=== PATIENT | female | born 1950 | race Caucasian/White ===

== ENCOUNTER 2019-12-25 08:08 | Emergency (ER) | payer MEDICARE, SELFPAY ==
--- NOTE | ~2019-12-25 | CT_ITS ---
EXAMINATION: CT pelvis wo con DATE: 12/25/2019 09:21 INDICATION: Fall with right hip pain TECHNIQUE: High resolution computed tomography (CT) of the pelvis was performed without intravenous c ontrast. Additional sagittal and coronal reconstructions were performed. Automated exposure control a nd iterative reconstruction technique were employed. The dose-length product was 367.36 mGy-cm. COMPARISON: None FINDINGS: Bone alignment is normal. Diffuse osteopenia. No fracture or suspected avascular necrosis. Mild osteo arthritis at the bilateral hips and sacroiliac joints. Severe lower lumbar spondylosis. No hip joint effusions or other abnormal fluid collections. Relatively symmetric mild fatty muscular atrophy in th e bilateral gluteal, quadriceps and hamstring musculature. Numerous diverticula along the sigmoid and distal descending colon without adjacent from 3 change to suggest diverticulitis. Appendix is normal . Bladder is normal. The uterus is not identified and has likely been surgically resected. No patholo gically enlarged pelvic or inguinal lymphadenopathy. IMPRESSION: 1. Degenerative skeletal changes. No acute osseous abnormality. Reviewed, dictated and finalized at location A.
--- NOTE | ~2019-12-25 | CT_ITS ---
EXAMINATION: CT lumbar spine wo con DATE: 12/25/2019 09:20 INDICATION: Back pain. Fall. TECHNIQUE: Computed tomography (CT) of the lumbar spine was performed without intravenous contrast. A utomated exposure control and iterative reconstruction technique were employed. The dose-length produ ct was 723.23 mGy-cm. COMPARISON: None FINDINGS: There is mild right hydronephrosis with transition point at the ureteropelvic junction. Par tially visualized are cysts in left kidney. There is 11 degrees levoscoliosis of thoracolumbar spine. There is 9 degrees dextrocurvature of lumbar spine. There is 3 mm anterolisthesis of L4 on L5. There is severely decreased disc height at T12-L1 and L1-L2, moderately decreased disc height at L2-L3 and L3-L4, and severely decreased disc height at L4-L5 and L5-S1. The following disc levels are specific ally discussed: L1-L2: The disc is bulging. There is severe bilateral facet joint osteoarthritis. There is mild right and moderate left neural foraminal stenosis. There is mild central canal stenosis. L2-L3: The disc is bulging. There is severe bilateral facet joint osteoarthritis. There is mild bilat eral neural foraminal stenosis. There is mild central canal stenosis. L3-L4: The disc is bulging. There is severe bilateral facet joint osteoarthritis. There is mild bilat eral neural foraminal stenosis. There is mild central canal stenosis. L4-L5: The disc is bulging. There is severe bilateral facet joint osteoarthritis. There is moderate b ilateral neural foraminal stenosis. There is moderate central canal stenosis. L5-S1: The disc is bulging. There is severe bilateral facet joint osteoarthritis. There is mild bilat eral neural foraminal stenosis. There is mild central canal stenosis. IMPRESSION: 1. Severe lumbar spondylosis. 2. Scoliosis. 3. Mild right hydronephrosis with transition point at the ureteropelvic junction. Reviewed, dictated and finalized at location A. IMPRESSION: 1. Severe lumbar spondylosis. 2. Scoliosis. 3. Mild right hydronephrosis with transition point at the ureteropelvic junctio n.
[2019-12-25 08:07] VITALS: BP 162/89; PULSE 101; RESP 16; TEMP 36.7; O2SAT 96
--- NOTE | 2019-12-25 08:47 | ED.FALL ---
HPI - Fall General Chief Complaint: Fall Stated Complaint: R HIP PAIN Time Seen by Provider: 12/25/19 08:16 Source: patient and EMS Mode of arrival: EMS Limitations: no limitations History of Present Illness HPI Narrative: Patient is a 69-year-old female with a history of polymyositis who presents for evaluation of a fall. Patient states that on Sunday, approximately 4 days ago, patient was transferring to a scooter, and fell off the scooter to the ground. Patient states she landed on her right side. Patient was initially able to stand with some assistance, but over the past 4 days has developed worsening lower back pain and right-sided hip pain. Patient has a history of frequent falls, numerous fractures in the past. Patient denies head trauma or loss of consciousness. No neck pain or upper back pain. No shoulder or arm pain. No wrist pain. Patient denies any numbness, but states that her right leg feels as if it will give out each time she tries to stand up. She also reports radiating pain from her buttock into her thigh. No numbness in her right leg. No bruising. Related Data Home Medications Medication Instructions Recorded Confirmed alprazolam 12/25/19 amlodipine 12/25/19 12/25/19 azathioprine 12/25/19 baclofen mg 12/25/19 celecoxib mg 12/25/19 pantoprazole PO 12/25/19 prednisone 4 mg PO DAILY 12/25/19 prednisone 5 mg PO DAILY 12/25/19 tramadol mg 12/25/19 Allergies Allergy/AdvReac Type Severity Reaction Status Date / Time hydrocodone Allergy Unknown Hives Verified 12/25/19 08:19 cephalexin [From Keflex] Allergy Hives Verified 12/25/19 08:19 VICODIN Allergy Unknown Hives Uncoded 12/25/19 08:19 Review of Systems Review of Systems: Narrative: CONSTITUTIONAL: Denies fever CARDIOVASCULAR: Denies chest pain RESPIRATORY: Denies cough or dyspnea. GASTROINTESTINAL: Denies abdominal pain SKIN: Denies rash MUSCULOSKELETAL: Reports back pain and right-sided hip pain NEUROLOGIC: Denies headache PMFSH Past Medical History Medical History Carpal tunnel syndrome Headache Polymyositis Sleep apnea Surgical History Surgical History (Updated 12/25/19 @ 08:50 by Yolanda Herrera MD) H/O: hysterectomy Hx of cholecystectomy Social History Social History (Updated 12/25/19 @ 08:50 by Yolanda Herrera MD) Smoking status: Never smoker Alcohol intake: never Substance use: never Living arrangements: with family Gender identity (if verbalized by the patient): Female Exam Narrative: Exam Narrative: GENERAL: Awake, alert, conversant HEAD: Normocephalic, atraumatic. EYES: PERRLA and EOMI. ENT: Nares clear, no rhinorrhea or epistaxis. Mucous membranes moist. NECK: Supple. CHEST: No respiratory distress, breathing even and non labored HEART: Regular rate, sinus rhythm ABDOMEN:Non distended, non tender EXTREMITIES: Pelvis stable to anterior lateral compression. No significant pain with palpation. Normal range of motion. No edema. No limb length discrepancy. No pain with internal or external rotation of the right or left hip. DP pulses 2+. Reflexes 2+. SKIN: Warm, dry, no rash. NEURO:No focal deficits. Alert and oriented x3 Course Vital Signs Vital signs: Vital Signs Temperature 36.7 C 12/25/19 08:07 Pulse Rate 101 H 12/25/19 08:07 Respiratory Rate 16 12/25/19 08:07 Blood Pressure 162/89 H 12/25/19 08:07 Pulse Oximetry 96 12/25/19 08:07 Temperature 36.7 C 12/25/19 08:07 Pulse Rate 99 12/25/19 09:20 Respiratory Rate 16 12/25/19 09:20 Blood Pressure 149/73 H 12/25/19 09:20 Pulse Oximetry 98 12/25/19 09:20 MDM - Fall MDM Narrative Medical decision making narrative: Patient is a 69-year-old female that presented for evaluation of hip pain following a fall. Patient reports some radiating pain that sounds a bit like neuropathy given the burning, shooting nature of the pain into the thigh an
[2019-12-25] MEDS: oxyCODONE/ACETAMINOPHEN 5-325 MG TABLET 1 TABLET PO (08:59)
[2019-12-25 09:20] VITALS: BP 149/73; PULSE 99; RESP 16; O2SAT 98
[2019-12-25 11:00] VITALS: BP 137/78; PULSE 105; RESP 16; O2SAT 95
== END 2019-12-25 13:15 | disposition home or self-care (01) ==
PROVIDERS: Emergency Provider Emergency Medicine; PCP Internal Medicine
DX: M54.40 Lumbago with sciatica, unspecified side (principal); G47.30 Sleep apnea, unspecified; M33.20 Polymyositis, organ involvement unspecified; M47.816 Spondylosis without myelopathy or radiculopathy, lumbar region; N13.30 Unspecified hydronephrosis
CPT/HCPCS: 72131; 72192; 99284; A9270

== ENCOUNTER 2022-05-01 20:13 | Inpatient (IN) | payer MEDICARE, SELFPAY ==
--- NOTE | ~2022-05-01 | CT_ITS ---
EXAMINATION: CTA abdomen pelvis DATE: 05/01/2022 21:52 INDICATION: GI bleed TECHNIQUE: Computed tomographic angiography (CTA) of the abdomen and pelvis was performed with 100 mL Omnipaque-350 intravenous contrast. Maximum intensity projection 3D-reconstructions of the aorta and other arteries were constructed by the technologist on a separate workstation. The dose-length produ ct (DLP) was 582.43 mGy-cm. Automated exposure control and iterative reconstruction technique were em ployed. COMPARISON: None. FINDINGS: Minimal dependent atelectasis is present in the lung bases. The heart size is normal. There is no aneurysm or dissection of the abdominal aorta and the celiac axis, superior mesenteric artery, and inferior mesenteric artery are normal at their origins. There are two right and one left renal a rteries. The gallbladder is surgically absent. There is mild enlargement of the common bile duct and central intrahepatic ducts which is likely due to post cholecystectomy state. The liver, spleen and a drenal glands are normal. There are 12 mm cystic lesions in the head and tail of the pancreas. There is a 15 mm cystic lesion in the head of the pancreas. Cysts of the kidneys measure up to 7.4 cm on th e left. The appendix is normal. No pathologically enlarged abdominal or pelvic lymph nodes are identi fied. There is no free intraperitoneal gas or evidence of bowel obstruction. There are multiple colon ic diverticula. There is hyperattenuating contrast attenuation in the sigmoid colon. There is severe lumbar spondylosis. IMPRESSION: 1. Active contrast extravasation of the sigmoid colon likely related to bleeding diverticula. GI eval uation is recommended. 2. Multiple cystic lesions of the pancreas. The differential diagnosis includes pseudocyst, intraduct al papillary mucinous neoplasm (IPMN), mucinous cystic neoplasm (MCN), and the less common serous cys tadenoma and neuroendocrine tumor. Correlate for history of pancreatitis. Follow-up pancreas protocol CT or MRI in six months is recommended. Reviewed, dictated and finalized at location F. ING HOUSE KEEPER IMPRESSION: 1. Active contrast extravasation of the sigmoid colon likely related to bleedin g diverticula. GI evaluation is recommended. 2. Multiple cystic lesions of the pancreas. The differential diagnosis includes pseudocyst, intraductal papillary mucinous neoplasm (IPMN), mucinous cystic ne oplasm (MCN), and the less common serous cystadenoma and neuroendocrine tumor. Correlate for history of pancreatitis. Follow-up pancreas protocol CT or MRI in six months is recommended.
[2022-05-01 20:25] VITALS: BP 154/110; PULSE 122; RESP 18; TEMP 36.6; O2SAT 97
--- NOTE | 2022-05-01 20:47 | ED.GIBLEED ---
HPI - GI Bleed General Chief complaint: GI Bleed Stated complaint: gi bleed Time Seen by Provider: 05/01/22 20:31 History of Present Illness HPI Narrative: This is a 71-year-old female past medical history of polymyositis on prednisone and azathioprine, presenting the emergency department with GI bleed. Patient states she was in her normal state of health, this evening when a home advertising assistant manager, as assisted her up to the restroom when she noted blood on the seat. She then had a bowel movement that she said was primarily blood. She denies bleeding from any source, abdominal pain, fevers, chest pain or shortness of breath. She denies any prior history of abdominal bleed. She states over the past week she has taken approximately 800 mg of ibuprofen twice a day after a fall. She has no other complaints today. Related Data Home Medications Medication Instructions Recorded Confirmed alprazolam 0.25 mg tablet 2.5 mg PO QHS PRN Sleep 12/25/19 05/02/22 amlodipine 2.5 mg tablet 7.5 mg PO DAILY 12/25/19 05/02/22 azathioprine 50 mg tablet 50 mg PO TID 12/25/19 05/02/22 baclofen 10 mg tablet 10 mg PO BID 12/25/19 05/02/22 pantoprazole 40 mg tablet,delayed 40 mg PO DAILY 12/25/19 05/02/22 release prednisone 1 mg tablet 2 mg PO DAILY 12/25/19 05/02/22 prednisone 5 mg tablet 5 mg PO DAILY 12/25/19 05/02/22 tramadol 50 mg tablet 50 mg PO PRN PRN Pain 12/25/19 05/02/22 methenamine hippurate 1 gram tablet 1 g PO BID 05/02/22 05/02/22 Allergies Allergy/AdvReac Type Severity Reaction Status Date / Time hydrocodone Allergy Unknown Hives Verified 05/01/22 20:33 cephalexin [From Keflex] Allergy Hives Verified 05/01/22 20:33 VICODIN Allergy Unknown Hives Uncoded 05/01/22 20:33 Review of Systems Review of Systems: CONSTITUTIONAL: Denies fever, chills, or sweats. EYES: Denies visual changes, redness, or discharge. ENT: Denies rhinorrhea, congestion, sore throat, or otalgia. CARDIOVASCULAR: Denies chest pain, palpitations, or edema. RESPIRATORY: Denies cough or dyspnea. GASTROINTESTINAL: Bright red blood per rectum denies abdominal pain, nausea, vomiting, or diarrhea. GENITOURINARY: Denies dysuria or hematuria. SKIN: Denies rash or itching. MUSCULOSKELETAL: Denies back pain, joint pain, or myalgia. NEUROLOGIC: Denies headache, numbness, dizziness, or weakness. PSYCHIATRIC: Denies anxiety or depression. [facility] Past Medical History Medical History (Updated 05/02/22 @ 05:13 by Joon Arteaga MD) Essential hypertension GERD (gastroesophageal reflux disease) Headache Polymyositis Sleep apnea Surgical History Surgical History (Updated 05/02/22 @ 04:31 by Jessica Laura DO) History of bilateral carpal tunnel release (~1999) History of laparoscopic cholecystectomy History of nasal septoplasty (2000) With turbinate reduction History of tonsillectomy (2000) Status post uvulopalatopharyngoplasty (2000) Family History Family History Father Congestive heart failure Social History Social History Smoking status: Never smoker Alcohol intake: former Drinks per week: 1 Substance use: never Lack of Transportation: No Lack of Food: Never True Current Housing: I Have Housing Concerned About Future Housing: No Difficulty Paying Gas/Electric Bills: No Difficulty Paying for Meds: No Currently Unemployed: No Education: Master's Degree or Higher Difficulty w/ Childcare or Family Care: No Gender identity (if verbalized by the patient): Female Spiritual care concerns: No Exam Narrative: GENERAL: Well-developed, well-nourished, and in no acute distress. HEAD: Normocephalic, atraumatic. EYES: PERRLA and EOMI. ENT: Nares clear, no rhinorrhea or epistaxis. Mucous membranes moist. Oropharynx without tonsillar hypertrophy exudate or other lesions. No noted conjunctival pallor NECK: Supple. No adenopathy or m
[2022-05-01] MEDS: SODIUM CHLORIDE 0.9% IV 1,000 ML 999 ML IV CONT (21:10)
[2022-05-01 21:12] LABS: Basophils Absolute Auto 0.1 K/mm3 (0.0-0.1); Basophils Percent Auto 0.8 % (0.2-1.2); Eosinophils Absolute Auto 0.3 K/mm3 (0-0.3); Eosinophils Percent Auto 2.3 % (0-4.4); Hematocrit 39.1 % (37.0-47.0); Hemoglobin 12.9 g/dL (12.0-15.0); Immature Granulocyte Absolute 0.04 K/mm3 (0.00-0.031); Immature Granulocyte Percent A 0.4 % (0-0.5); Lymphocytes Absolute Auto 2.72 K/mm3 (0.9-3.2); Lymphocytes Percent Auto 23.9 % (18.3-44.2); Mean Corpuscular Hemoglobin 31.2 pg (26-34); Mean Corpuscular Volume 94.7 fl (80-100); Mean Platelet Volume 9.6 fl (7.4-10.4); Monocytes Absolute Auto 1.1 K/mm3 (0.1-0.6); Monocytes Percent Auto 9.7 % (2.6-8.5); Neutrophils Absolute Auto 7.2 K/mm3 (1.3-6.7); Neutrophils Percent Auto 62.9 % (45.5-73.1); Platelet Count Result 406 k/mm3 (150-375); Red Blood Count 4.13 M/mm3 (4.2-5.4); Red Cell Distribution Width 13.5 % (11.5-14.5); White Blood Count 11.4 K/mm3 (4.5-10.0)
[2022-05-01 21:22] LABS: Alanine Aminotransferase 18 U/L (6-35); Alkaline Phosphatase 70 U/L (38-126); Anion Gap 12 mmol/L (8-16); Aspartate Amino Transferase 23 U/L (14-36); Bilirubin,Total 0.4 mg/dL (0.2-1.3); Blood Urea Nitrogen 22 mg/dL (7-17); Calcium 8.9 mg/dL (8.4-10.2); Carbon Dioxide 26 mmol/L (22-30); Chloride 103 mmol/L (98-107); Estimated CRCL calculation 92 ml/min; Estimated Glomerular Filt Rate > 60; Glucose 198 mg/dL (65-110); Sodium 141 mmol/L (137-145)
[2022-05-01 21:25] LABS: INR 1.1; Prothrombin Time 13.5 Seconds (11.1-14.7)
[2022-05-01 21:26] LABS: Partial Thromboplastin Time 35.7 SECONDS (22.3-36.8)
[2022-05-01] MEDS: PANTOPRAZOLE SODIUM IV 40 MG VIAL 80 MG IV PUSH (21:56)
[2022-05-01 22:22] VITALS: PULSE 108; RESP 12
[2022-05-01 22:30] VITALS: PULSE 103; RESP 18; O2SAT 97
[2022-05-01 22:45] VITALS: BP 138/76; PULSE 102; RESP 12; O2SAT 96
[2022-05-01 23:51] VITALS: BP 117/76; PULSE 95; RESP 18; O2SAT 99
[2022-05-02] VITALS (17 sets, daily range): BP systolic 80–140; BP diastolic 39–82; PULSE 86–111; RESP 12–23; TEMP 36.1–37.2; O2SAT 95–100; BMI 30.2; BMI 30.5
[2022-05-02 00:31] LABS: SARS-CoV-2 RNA PCR Negative
--- NOTE | 2022-05-02 00:35 | ADMGEN ---
This patient, Janice Walker, was admitted to IMU Room 201-01 at 0030. Patient/family oriented to hospital policies and general routines including ID bracelet, bed and alarms, visiting hours, pain management, procedures, bathroom and other care routines, personal items, smoking policy, room service/diet, and visiting hours. Information on how to activate the Rapid Response Team has been discussed. Patient/Family are encouraged to report perceived risks to care and to ask questions if they do not understand what they are told or what they should do.
[2022-05-02] MEDS: SODIUM CHLORIDE 0.9% IV 1,000 ML 125 ML IV CONT ×2 (03:00→20:33)
--- NOTE | 2022-05-02 04:22 | PM.IMHP ---
H&P: HPI History of Present Illness Date/Time: 05/02/22 04:22 Chief Complaint: Bright red blood from rectum Narrative: 71-year-old female with a past medical history of polymyositis essential hypertension, GERD and diverticulosis who presented to the ER from home via EMS due to bright red blood per rectum. Patient was asymptomatic but when her mobile home set up person went to help her to go to the bathroom when she shifted it was noted she had a large amount of bright red blood where she had been sitting. She had another large bowel movement in the ER that was half blood and half stool. She is not having any abdominal pain. On arrival to the ER the patient's hemoglobin was 12.9 with no prior values available for comparison. Her repeat hemoglobin at the time of my evaluation was down to 9.1. The patient has had 4 large mostly bloody bowel movements since admission to the IMU. She remains tachycardic. She denies any abdominal pain except for immediately proceeding a bowel movement when her stomach cramps. She is not on any blood thinners. She has been taking ibuprofen approximately 8 tablets a day for the last 3 or 4 days since her fell on her bruising her ribs. She denies any nausea or vomiting. She denies any chest pain or shortness of breath. She has a chronic murmur that is been present for several years. She denies any history of lower extremity swelling orthopnea or paroxysmal nocturnal dyspnea. She denies any dyspnea on exertion. She denies any dysuria, hematuria or changes in urinary frequency. She does have history of frequent UTIs but has not had 1 in the last year. She reports that she has chronic buttock pain due to cramping from her polymyositis. Have baseline for the last year so patient can only transfer with [facility]. She undergoes physical therapy 3 days a week and occupational therapy twice a week. Her has dementia and they have home care assistance daily. Review of Systems Review of Systems: 12 systems were reviewed with pertinent positives and negatives per HPI. Except as documented in the HPI, all other systems were reviewed and are negative. [facility] Past Medical History Medical History (Updated 05/02/22 @ 06:03 by Jessica Laura DO) Diet-controlled type 2 diabetes mellitus Essential hypertension GERD (gastroesophageal reflux disease) Headache Polymyositis Sleep apnea Resolved after uvulopalatoplasty/tonsillectomy, septoplasty Surgical History Surgical History (Updated 05/02/22 @ 04:31 by Jessica Laura DO) History of bilateral carpal tunnel release (~1999) History of laparoscopic cholecystectomy History of nasal septoplasty (2000) With turbinate reduction History of tonsillectomy (2000) Status post uvulopalatopharyngoplasty (2000) Family History Family History (Updated 05/02/22 @ 05:51 by Jessica Laura DO) Father Congestive heart failure Heart disease, Onset Age: 65 Dementia Mother Diabetes mellitus Her mother still alive at age 94. Social History Social History (Updated 05/02/22 @ 05:56 by Jessica Laura DO) Social History: Patient and lives at home with her of 50 years. They have 2 children and 7 grandchildren. 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 Code status: Full code Emergency contact: Esther Salter (daughter) Smoking status: Never smoker Alcohol intake: former Drinks per week: 1 Substance use: never Lack of Transportation: No Lack of Food: Never True Current Housing: I Have Housing Concerned About Future Housing: No Difficulty Paying Gas/Electric Bills: No Difficulty Paying for Meds: No Currently Unemployed: No Education: Master's Degree or Higher Difficulty w/ Childcare or Family Care: No Gender identity (if verbalized by the patient): Female [place]
[2022-05-02 05:08] LABS: Basophils Absolute Auto 0.1 K/mm3 (0.0-0.1); Basophils Percent Auto 0.7 % (0.2-1.2); Eosinophils Absolute Auto 0.2 K/mm3 (0-0.3); Eosinophils Percent Auto 1.6 % (0-4.4); Hematocrit 27.8 % (37.0-47.0); Hemoglobin 9.1 g/dL (12.0-15.0); Immature Granulocyte Absolute 0.04 K/mm3 (0.00-0.031); Immature Granulocyte Percent A 0.4 % (0-0.5); Lymphocytes Percent Auto 23.9 % (18.3-44.2); Mean Corpuscular HGB Conc 32.7 g/dl (32-36); Mean Corpuscular Volume 94.6 fl (80-100); Mean Platelet Volume 9.8 fl (7.4-10.4); Monocytes Absolute Auto 0.9 K/mm3 (0.1-0.6); Monocytes Percent Auto 9.7 % (2.6-8.5); Neutrophils Absolute Auto 6.1 K/mm3 (1.3-6.7); Neutrophils Percent Auto 63.7 % (45.5-73.1); Platelet Count Result 336 k/mm3 (150-375); Red Blood Count 2.94 M/mm3 (4.2-5.4); Red Cell Distribution Width 13.5 % (11.5-14.5); White Blood Count 9.6 K/mm3 (4.5-10.0)
[2022-05-02 05:14] LABS: Anion Gap 7 mmol/L (8-16); Blood Urea Nitrogen 21 mg/dL (7-17); Carbon Dioxide 24 mmol/L (22-30); Chloride 110 mmol/L (98-107); Estimated CRCL calculation 123 ml/min; Estimated Glomerular Filt Rate > 60; Glucose 139 mg/dL (65-110); Potassium 3.9 mmol/L (3.4-5.0); Sodium 141 mmol/L (137-145)
[2022-05-02] MEDS: polyethylene glycoL 3350 238 GM BOTTLE PO (06:16)
[2022-05-02] MEDS: traMADol HCL (*CRX) 50 MG TABLET PO ×2 (06:36→22:57)
[2022-05-02] MEDS: PANTOPRAZOLE 40 MG TABLET PO (08:59)
[2022-05-02] MEDS: azaTHIOprine 50 MG TABLET PO ×2 (08:59→17:54)
[2022-05-02] MEDS: BACLOFEN 10 MG TABLET PO ×2 (08:59→17:54)
[2022-05-02] MEDS: predniSONE 5 MG TABLET PO (08:59)
[2022-05-02] MEDS: predniSONE 1 MG TABLET 2 MG PO (08:59)
--- NOTE | 2022-05-02 09:10 | PM.IMPN ---
Progress Note: A&P Assessment and Plan (1) Diverticular hemorrhage: Code(s): K57.31 - Diverticulosis of large intestine without perforation or abscess with bleeding Status: Acute Assessment and Plan: Colonoscopy earlier today, showed diverticular bleed general surgery consulted in case patient needs embolization CLD for now (2) GERD (gastroesophageal reflux disease): Qualifiers: Esophagitis presence: esophagitis presence not specified Qualified Code(s): K21.9 - Gastro-esophageal reflux disease without esophagitis Code(s): K21.9 - Gastro-esophageal reflux disease without esophagitis Status: Acute Assessment and Plan: IV PPI (3) Essential hypertension: Code(s): I10 - Essential (primary) hypertension Status: Acute Assessment and Plan: hold BP meds for now, monitor (4) Hyperglycemia: Code(s): R73.9 - Hyperglycemia, unspecified Status: Acute Assessment and Plan: check a1c, accuchecks, monitor (5) Polymyositis: Code(s): M33.20 - Polymyositis, organ involvement unspecified Status: Acute Assessment and Plan: continue chronic steroids, stable Plan DVT prophylaxis with SCDs GI prophylaxis with PPI Code status full code Subjective Date/time seen: 05/02/22 09:10 Interval history: No overnight events noted. No chest pain or shortness of breath. No nausea, vomiting or diarrhea. No fevers or chills. No more diarrhea, last BM this morning before colonoscopy. Review of Systems Review of Systems: 12 point review of systems was assessed and was negative except as noted in the HPI Exam Narrative: General: No acute distress, alert and oriented per baseline HEENT: Atraumatic, normocephalic, mucous membranes moist CV: Regular rate and rhythm, S1, S2 Lungs: Clear to auscultation bilaterally, no rales or crackles noted, no wheezes, good air entry Abdomen: Soft, nontender, nondistended Extremities: Normal to inspection Skin: No rashes noted, no lesions or wounds seen Psych: Euthymic, normal affect Objective Data Vital Signs Vital Signs: Vital Signs - 24 hr 05/01/22 20:25 05/01/22 22:22 05/01/22 22:30 Temperature 97.9 F Pulse Rate 122 H 108 H 103 H Respiratory Rate 18 12 18 Blood Pressure 154/110 H Pulse Oximetry 97 97 Oxygen Delivery Room Air 05/01/22 22:45 05/01/22 23:51 05/02/22 00:31 Temperature 97.9 F Pulse Rate 102 H 95 95 Respiratory Rate 12 18 20 Blood Pressure 138/76 117/76 126/72 Pulse Oximetry 96 99 98 Oxygen Delivery 05/02/22 02:00 05/02/22 04:00 05/02/22 04:35 Temperature 98.0 F Pulse Rate 95 106 H 101 H Respiratory Rate 18 Blood Pressure 137/74 Pulse Oximetry 97 Oxygen Delivery 05/02/22 06:00 05/02/22 07:51 05/02/22 08:53 Temperature 98.5 F 98.9 F Pulse Rate 105 H 111 H 104 H Respiratory Rate 12 16 Blood Pressure 135/72 137/73 Pulse Oximetry 98 98 Oxygen Delivery Intake/Output Intake/Output: Intake & Output 04/29/22 04/30/22 05/01/22 05/02/22 23:59 23:59 23:59 23:59 Intake Total 1000 0 Balance 1000 0 Meds/Results Medications: Active Medications Generic Name Dose Route Start Last Admin Trade Name Freq PRN Reason Stop Dose Admin Acetaminophen 500 mg 05/02/22 04:10 Acetaminophen 500 Mg Tablet PO Q6H PRN fever or pain Alprazolam 0.25 mg 05/02/22 06:44 Alprazolam (*Crx) 0.25 Mg Tablet BY MOUTH TID PRN Anxiety Azathioprine 50 mg 05/02/22 09:00 05/02/22 08:59 Azathioprine 50 Mg Tablet PO 50 mg TID SIA Administration Baclofen 10 mg 05/02/22 09:00 05/02/22 08:59 Baclofen 10 Mg Tablet PO 10 mg BID SIA Administration Sodium Chloride 1,000 mls @ 125 mls/hr 05/01/22 23:40 05/02/22 03:00 Normal Saline Iv IV CONT 125 mls/hr .Q8H SIA Administration Sodium Chloride 250 mls @ 30 mls/hr 05/02/22 05:33 Normal Saline Iv IV CONT 05/02/22 1
[2022-05-02] MEDS: LACTATED RINGERS 1,000 ML 150 ML IV CONT (10:17)
--- NOTE | 2022-05-02 10:31 | WPDANESEPPF ---
Anes - Initial Pre Proc Eval Procedure: Operation Date: 05/02/22 12:30 Proposed Procedures p Colonoscopy - Allen Humphrey MD Date/Time: 05/02/22 10:31 Surgeon: Jessica Laura DO Pre Op Diagnosis: Diverticular bleed Patient Data Age: 71 Gender: F Height: 1.55 m Weight: 74 kg Last Vital Signs Temp 97.7 F 05/02/22 10:15 Pulse 97 05/02/22 10:15 Resp 18 05/02/22 10:15 BP 130/77 05/02/22 10:15 Pulse Ox 100 05/02/22 10:15 O2 Del Method Room Air 05/02/22 10:15 Allergies Allergy/AdvReac Type Severity Reaction Status Date / Time hydrocodone Allergy Unknown Hives Verified 05/02/22 10:12 cephalexin [From Keflex] Allergy Hives Verified 05/02/22 10:12 VICODIN Allergy Unknown Hives Uncoded 05/02/22 10:12 Home Medications Medication Instructions Recorded Confirmed Type acetaminophen 500 mg capsule 500 mg PO Q6H PRN fever or pain 12/25/19 05/02/22 Rx #30 caps alprazolam 0.25 mg tablet 2.5 mg PO QHS PRN Sleep 12/25/19 05/02/22 History amlodipine 2.5 mg tablet 7.5 mg PO DAILY 12/25/19 05/02/22 History azathioprine 50 mg tablet 50 mg PO TID 12/25/19 05/02/22 History baclofen 10 mg tablet 10 mg PO BID 12/25/19 05/02/22 History ibuprofen 400 mg tablet 400 mg PO TID PRN fever or pain 10 12/25/19 05/02/22 Rx days #30 tabs pantoprazole 40 mg tablet,delayed 40 mg PO DAILY 12/25/19 05/02/22 History release prednisone 1 mg tablet 2 mg PO DAILY 12/25/19 05/02/22 History prednisone 5 mg tablet 5 mg PO DAILY 12/25/19 05/02/22 History tramadol 50 mg tablet 50 mg PO PRN PRN Pain 12/25/19 05/02/22 History methenamine hippurate 1 gram tablet 1 g PO BID 05/02/22 05/02/22 History Laboratory Tests 05/01/22 05/01/22 05/01/22 21:06 21:06 21:06 WBC 11.4 K/mm3 H K/mm3 (4.5-10.0) RBC 4.13 M/mm3 L M/mm3 (4.2-5.4) Hgb 12.9 g/dL g/dL (12.0-15.0) Hct 39.1 % % (37.0-47.0) MCV 94.7 fl fl (80-100) MCH 31.2 pg pg (26-34) MCHC 33.0 g/dl g/dl (32-36) RDW 13.5 % % (11.5-14.5) Plt Count 406 k/mm3 H k/mm3 (150-375) MPV 9.6 fl fl (7.4-10.4) Immature Gran % (Auto) 0.4 % % (0-0.5) Neut % (Auto) 62.9 % % (45.5-73.1) Lymph % (Auto) 23.9 % % (18.3-44.2) [place] % (Auto) 9.7 % H % (2.6-8.5) Eos % (Auto) 2.3 % % (0-4.4) Baso % (Auto) 0.8 % % (0.2-1.2) Lymph # (Auto) 2.72 K/mm3 K/mm3 (0.9-3.2) [place] # (Auto) 1.1 K/mm3 H K/mm3 (0.1-0.6) Eos # (Auto) 0.3 K/mm3 K/mm3 (0-0.3) Baso # (Auto) 0.1 K/mm3 K/mm3 (0.0-0.1) Abs Immat Gran (auto) 0.04 K/mm3 H K/mm3 (0.00-0.031) Absolute Neuts (auto) 7.2 K/mm3 H K/mm3 (1.3-6.7) Absolute Nucleated RBC 0.0 K/mm3 K/mm3 (0.0-0.012) Nucleated RBC % 0.0 % % (0.0-0.2) PT 13.5 Seconds Seconds (11.1-14.7) INR 1.1 APTT 35.7 SECONDS SECONDS (22.3-36.8) Sodium 141 mmol/L mmol/L (137-145) Potassium 4.0 mmol/L mmol/L (3.4-5.0) Chloride 103 mmol/L mmol/L (98-107) Carbon Dioxide 26 mmol/L mmol/L (22-30) Anion Gap 12 mmol/L mmol/L (8-16) BUN 22 mg/dL H mg/dL (7-17) Creatinine 0.40 mg/dL L mg/dL (0.7-1.0) Estim Creat Clear Calc 92 ml/min ml/min Estimated GFR > 60 (59 - ) Glucose 198 mg/dL H mg/dL (65-110) Calcium 8.9 mg/dL mg/dL (8.4-10.2) Total Bilirubin 0.4 mg/dL mg/dL (0.2-1.3) AST 23 U/L U/L (14-36) ALT 18 U/L U/L (6-35) Alkaline Phosphatase 70 U/L U/L (38-126) Total Protein 7.0 g/dL g/dL (6.3-8.2) Albumin 4.0 g/dL g/dL (3.5-5.1) SARS-CoV-2 RNA (RT-PCR) Blood Type Antibody Screen Crossmatch 05/01/22 05/01/22 05/02/22
--- NOTE | 2022-05-02 10:47 | WPDGICN ---
Assessment and Plan Assessment and plan (1) Diverticular hemorrhage: Code(s): K57.31 - Diverticulosis of large intestine without perforation or abscess with bleeding Status: Acute Assessment and Plan: CTA scan ordered and consistent with active bleeding from sigmoid diverticula will proceed with urgent colonoscopy may need surgery or even interventional radiology based on findings (2) Acute blood loss anemia: Code(s): D62 - Acute posthemorrhagic anemia Status: Acute Assessment and Plan: monitor for more signs of bleeding and gtrend h/h she is getting blood transfusion now (3) Bright red blood per rectum: Code(s): K62.5 - Hemorrhage of anus and rectum Status: Acute Assessment and Plan: probably from diverticula bleeding (4) Polymyositis: Code(s): M33.20 - Polymyositis, organ involvement unspecified Status: Acute GI Consult Note Consult date/time: 05/02/22 10:47 Reason for consult: rectal bleeding, acute blood loss anemia HPI: Janice Walker is a 71 year old female with past medical history of polymyositis on steroid and imuran, hypertension, GERD and diverticulosis who presented to the ER from home via EMS due to bright red blood per rectum that started last night without any warning, she had since several episodes of bright red blood per rectum, denies abdominal pain or fever, no history of GIB, denies using blood thinner. On arrival to the ER the patient's hemoglobin was 12.9 since dropped to 9.1. and still had more rectal bleeding, also was tachycardic and now getting blood transfusion. Last colonoscopy per patient ~ 2013. She completed bowel prep early this morning. Review of Systems Review of Systems: CONSTITUTIONAL: Denies fever, chills, or sweats. EYES: Denies visual changes, redness, or discharge. ENT: Denies rhinorrhea, congestion, sore throat, or otalgia. CARDIOVASCULAR: Denies chest pain, palpitations, or edema. RESPIRATORY: Denies cough or dyspnea. GASTROINTESTINAL: Bright red blood per rectum denies abdominal pain, nausea, vomiting, or diarrhea. GENITOURINARY: Denies dysuria or hematuria. SKIN: Denies rash or itching. MUSCULOSKELETAL: h/o myositis. NEUROLOGIC: Denies headache, numbness, dizziness, or weakness. PSYCHIATRIC: Denies anxiety or depression. [facility] Past Medical History Medical History (Updated 05/02/22 @ 12:40 by Allen Humphrey MD) Acute blood loss anemia Diet-controlled type 2 diabetes mellitus Essential hypertension GERD (gastroesophageal reflux disease) Headache Polymyositis Sleep apnea Resolved after uvulopalatoplasty/tonsillectomy, septoplasty Surgical History Surgical History (Updated 05/02/22 @ 04:31 by Jessica Laura DO) History of bilateral carpal tunnel release (~1999) History of laparoscopic cholecystectomy History of nasal septoplasty (2000) With turbinate reduction History of tonsillectomy (2000) Status post uvulopalatopharyngoplasty (2000) Family History Family History (Updated 05/02/22 @ 05:51 by Jessica Laura DO) Father Congestive heart failure Heart disease, Onset Age: 65 Dementia Mother Diabetes mellitus Her mother still alive at age 94. Social History Social History (Updated 05/02/22 @ 05:56 by Jessica Laura DO) Social History: Patient and lives at home with her of 50 years. They have 2 children and 7 grandchildren. 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 Code status: Full code Emergency contact: Esther Salter (daughter) Smoking status: Never smoker Alcohol intake: former Drinks per week: 1 Substance use: never Lack of Transportation: No Lack of Food: Never True Current Housing: I Have Housing Concerned About Future Housing: No Difficulty Paying Gas/Electric Bills: No Difficul
[2022-05-02 13:08] LABS: Hematocrit 31.5 % (37.0-47.0); Hemoglobin 10.2 g/dL (12.0-15.0); Mean Corpuscular HGB Conc 32.4 g/dl (32-36); Mean Corpuscular Hemoglobin 30.9 pg (26-34); Mean Corpuscular Volume 95.5 fl (80-100); Mean Platelet Volume 9.5 fl (7.4-10.4); Platelet Count Result 308 k/mm3 (150-375); Red Cell Distribution Width 14.1 % (11.5-14.5); White Blood Count 13.2 K/mm3 (4.5-10.0)
--- NOTE | 2022-05-02 14:28 | PM.CNGS ---
Assessment and Plan Assessment and plan (1) Acute blood loss anemia: Code(s): D62 - Acute posthemorrhagic anemia Status: Acute Assessment and Plan: s/p transfusion with appropriate response, no active bleed on colonoscopy, cont serial labs/exams (2) Diverticular hemorrhage: Code(s): K57.31 - Diverticulosis of large intestine without perforation or abscess with bleeding Status: Acute Assessment and Plan: likely source of bleed, cont serial exams, labs, if cont bleed will need intervention c either IR coil vs surgical resection History of Present Illness Consult details Consult date: 05/02/22 Reason for consult: other (lower GI bleed) Requesting physician: Allen Humphrey MD Narrative: Pt is a 71 y/o F presenting to hospital c BRBPR. Pt reports bleeding started acutely last night. Pt reports some associated weakness, dizziness. Pt denies any previous h/o GIB. Pt has h/o polymyositis and is on chronic steroid therapy. All history obtained per chart as pt is still in recovery from colonoscopy today. Review of Systems Review of Systems: ROS unobtainable: Yes unobtainable due to mental status and other (still waking up from anesthesia) PMFSH Past Medical History Medical History Acute blood loss anemia Diet-controlled type 2 diabetes mellitus Essential hypertension GERD (gastroesophageal reflux disease) Headache Polymyositis Sleep apnea Resolved after uvulopalatoplasty/tonsillectomy, septoplasty Surgical History Surgical History History of bilateral carpal tunnel release (~1999) History of laparoscopic cholecystectomy History of nasal septoplasty (2000) With turbinate reduction History of tonsillectomy (2000) Status post uvulopalatopharyngoplasty (2000) Family History Family History Father Congestive heart failure Heart disease, Onset Age: 65 Dementia Mother Diabetes mellitus Her mother still alive at age 94. Social History Social History Social History: Patient and lives at home with her of 50 years. They have 2 children and 7 grandchildren. 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 Code status: Full code Emergency contact: Esther Salter (daughter) Smoking status: Never smoker Alcohol intake: former Drinks per week: 1 Substance use: never Lack of Transportation: No Lack of Food: Never True Current Housing: I Have Housing Concerned About Future Housing: No Difficulty Paying Gas/Electric Bills: No Difficulty Paying for Meds: No Currently Unemployed: No Education: Master's Degree or Higher Difficulty w/ Childcare or Family Care: No Gender identity (if verbalized by the patient): Female Spiritual care concerns: No Meds Home Medications and Allergies Home Medications Medication Instructions Recorded Confirmed Type acetaminophen 500 mg capsule 500 mg PO Q6H PRN fever or pain 12/25/19 05/02/22 Rx #30 caps alprazolam 0.25 mg tablet 2.5 mg PO QHS PRN Sleep 12/25/19 05/02/22 History amlodipine 2.5 mg tablet 7.5 mg PO DAILY 12/25/19 05/02/22 History azathioprine 50 mg tablet 50 mg PO TID 12/25/19 05/02/22 History baclofen 10 mg tablet 10 mg PO BID 12/25/19 05/02/22 History ibuprofen 400 mg tablet 400 mg PO TID PRN fever or pain 10 12/25/19 05/02/22 Rx days #30 tabs pantoprazole 40 mg tablet,delayed 40 mg PO DAILY 12/25/19 05/02/22 History release prednisone 1 mg tablet 2 mg PO DAILY 12/25/19 05/02/22 History prednisone 5 mg tablet 5 mg PO DAILY 12/25/19 05/02/22 History tramadol 50 mg tablet 50 mg PO PRN PRN Pain 12/25/19 05/02/22 History methe
--- NOTE | 2022-05-02 16:52 | PC.NURSE ---
This patient, Janice Walker, was transferred to [facility] on 05/02/22 at 1652. Personal belongings sent with patient. Report given to Dede CHILD. Appropriate documentation sent with patient.
[2022-05-02 22:19] LABS: Hematocrit 27.5 % (37.0-47.0); Hemoglobin 9.1 g/dL (12.0-15.0); Mean Corpuscular HGB Conc 33.1 g/dl (32-36); Mean Corpuscular Hemoglobin 30.8 pg (26-34); Mean Corpuscular Volume 93.2 fl (80-100); Mean Platelet Volume 9.6 fl (7.4-10.4); Platelet Count Result 270 k/mm3 (150-375); Red Blood Count 2.95 M/mm3 (4.2-5.4); Red Cell Distribution Width 14.4 % (11.5-14.5); White Blood Count 11.6 K/mm3 (4.5-10.0)
[2022-05-03] VITALS: BP 129/67; PULSE 100; RESP 18; TEMP 36; O2SAT 97
[2022-05-03 04:15] VITALS: BP 145/69; PULSE 91; RESP 20; TEMP 36.1; O2SAT 98
[2022-05-03 05:20] LABS: Basophils Absolute Auto 0.1 K/mm3 (0.0-0.1); Basophils Percent Auto 0.8 % (0.2-1.2); Eosinophils Absolute Auto 0.2 K/mm3 (0-0.3); Eosinophils Percent Auto 2.1 % (0-4.4); Hematocrit 25.5 % (37.0-47.0); Hemoglobin 8.3 g/dL (12.0-15.0); Immature Granulocyte Absolute 0.05 K/mm3 (0.00-0.031); Immature Granulocyte Percent A 0.6 % (0-0.5); Lymphocytes Absolute Auto 2.64 K/mm3 (0.9-3.2); Lymphocytes Percent Auto 30.4 % (18.3-44.2); Mean Corpuscular HGB Conc 32.5 g/dl (32-36); Mean Corpuscular Hemoglobin 31.2 pg (26-34); Mean Corpuscular Volume 95.9 fl (80-100); Mean Platelet Volume 9.7 fl (7.4-10.4); Monocytes Percent Auto 11.5 % (2.6-8.5); Neutrophils Absolute Auto 4.7 K/mm3 (1.3-6.7); Neutrophils Percent Auto 54.6 % (45.5-73.1); Platelet Count Result 254 k/mm3 (150-375); Red Blood Count 2.66 M/mm3 (4.2-5.4); Red Cell Distribution Width 14.7 % (11.5-14.5); White Blood Count 8.7 K/mm3 (4.5-10.0)
[2022-05-03 05:28] LABS: Alanine Aminotransferase 15 U/L (6-35); Albumin Level 2.6 g/dL (3.5-5.1); Alkaline Phosphatase 50 U/L (38-126); Anion Gap 3 mmol/L (8-16); Aspartate Amino Transferase 15 U/L (14-36); Bilirubin,Total 0.3 mg/dL (0.2-1.3); Blood Urea Nitrogen 8 mg/dL (7-17); Calcium 7.7 mg/dL (8.4-10.2); Carbon Dioxide 23 mmol/L (22-30); Chloride 110 mmol/L (98-107); Estimated CRCL calculation 125 ml/min; Estimated Glomerular Filt Rate > 60; Glucose 115 mg/dL (65-110); Potassium 2.8 mmol/L (3.4-5.0); Sodium 136 mmol/L (137-145)
[2022-05-03 06:13] LABS: Magnesium 1.8 mg/dL (1.6-2.3)
[2022-05-03] MEDS: POTASSIUM CHLORIDE 20 MEQ TABLET 40 MEQ PO ×2 (06:32→09:50)
[2022-05-03] MEDS: SODIUM CHLORIDE 0.9% IV 1,000 ML 125 ML IV CONT ×2 (06:34→15:41)
--- NOTE | 2022-05-03 08:40 | PM.IMPN ---
Progress Note: A&P Assessment and Plan (1) Diverticular hemorrhage: Code(s): K57.31 - Diverticulosis of large intestine without perforation or abscess with bleeding Status: Acute Assessment and Plan: hb on admission 12, trending down CTA with active contrast extravasation of the sigmoid colon likley related to bleeding diverticula. colonoscopy: multiple diverticula present in the descending colon and in the sigmoid colon. the diverticula prodcuced a stimata of bleeding but could not see ongoing bleeding, noted analia stool adn clots from recent bleeding, could not identify culprit divertiula. source of bleeding was left sdied diverticulosis. colon normal otherwise, no AVMs, no signs of bleeding from right lolon, no obvious polyp but prep suboptimal. general surgery consulted in case patient needs embolization. If continues to have BRBPR: need to trasnfer to tertiary hospital with IR embolisation capability. on clear liquid diet Will advance if no further bleed today (2) GERD (gastroesophageal reflux disease): Qualifiers: Esophagitis presence: esophagitis presence not specified Qualified Code(s): K21.9 - Gastro-esophageal reflux disease without esophagitis Code(s): K21.9 - Gastro-esophageal reflux disease without esophagitis Status: Acute Assessment and Plan: IV PPI (3) Essential hypertension: Code(s): I10 - Essential (primary) hypertension Status: Acute Assessment and Plan: hold BP meds for now, monitor (4) Hyperglycemia: Code(s): R73.9 - Hyperglycemia, unspecified Status: Acute Assessment and Plan: accuchecks, monitor (5) Polymyositis: Code(s): M33.20 - Polymyositis, organ involvement unspecified Status: Acute Assessment and Plan: continue chronic steroids, stable Plan Hypokalemia: replaced, recheck and monitor DVT prophylaxis with SCDs GI prophylaxis with PPI Code status full code will order PT OT to evaluate she is limited in her mobility at home prior to this Subjective Date/time seen: 05/03/22 08:40 Interval history: No overnight events noted. No chest pain or shortness of breath. No nausea, vomiting or diarrhea. No fevers or chills. no further bleeding noted. Review of Systems Review of Systems: All systems reviewed & are unremarkable except as noted in HPI and below Exam Narrative: General: No acute distress, alert and oriented per baseline HEENT: Atraumatic, normocephalic, mucous membranes moist CV: Regular rate and rhythm, S1, S2 Lungs: Clear to auscultation bilaterally, no rales or crackles noted, no wheezes, good air entry Abdomen: Soft, nontender, nondistended Extremities: Normal to inspection Skin: No rashes noted, no lesions or wounds seen Psych: Euthymic, normal affect Objective Data Vital Signs Vital Signs: Vital Signs - 24 hr 05/02/22 08:53 05/02/22 09:08 05/02/22 10:15 Temperature 98.9 F 97.3 F L 97.7 F Pulse Rate 104 H 102 H 97 Respiratory Rate 16 18 18 Blood Pressure 137/73 132/70 130/77 Pulse Oximetry 98 97 100 Oxygen Delivery Room Air 05/02/22 11:23 05/02/22 11:33 05/02/22 11:43 Temperature Pulse Rate 101 H 94 97 Respiratory Rate 23 H 21 H 21 H Blood Pressure 80/39 L 101/56 L 126/82 Pulse Oximetry 95 96 95 Oxygen Delivery Room Air Room Air Room Air 05/02/22 11:45 05/02/22 12:00 05/02/22 16:00 Temperature 98.3 F 98.5 F 98.5 F Pulse Rate 97 99 102 H Respiratory Rate 21 H 12 12 Blood Pressure 126/82 133/70 140/80 Pulse Oximetry 95 98 98 Oxygen Delivery 05/02/22 18:40 05/02/22 20:59 05/03/22 00:00 Temperature 97 F L 96.8 F L Pulse Rate 86 100 Respiratory Rate 18 18 Blood Pressure 129/63 129/67 Pulse Oximetry 98 97 Oxygen Delivery Room Air 05/02/22 20:00 05/03/22 04:15 Temperature 96.9 F L Pulse Rate 91 Respiratory Rate 20 Blood Pressure 145/69 H Pulse Oximetry 98 Oxygen Delivery Room Air Intake/Output
[2022-05-03 08:48] LABS: Glucose Point of Care 130 mg/dl (65-105)
--- NOTE | 2022-05-03 09:05 | PM.PNGS ---
Progress Note: A&P Assessment and Plan (1) Diverticular hemorrhage: Code(s): K57.31 - Diverticulosis of large intestine without perforation or abscess with bleeding Status: Acute Assessment and Plan: stable, cont serial exams, labs, ADAT, encourage OOB/IS Subjective Subjective Date/Time Seen: 05/03/22 09:05 feels ok just reports weakness, no further bleeding overnight Review of Systems Review of Systems: All systems reviewed & are unremarkable except as noted in HPI and below Exam Const: General: cooperative, comfortable and no acute distress Resp: Auscultation: clear to auscultation bilaterally Cardio: Rate: regular rate Rhythm: regular rhythm GI: Inspection: normal to inspection and non-distended GI Palp: No abdominal tenderness, Yes Soft to palpation, No Tenderness to palpation present (GI), No Guarding due to palpation present (GI) and No Rigid due to palpation Objective Data Vital Signs Vital Signs: Vital Signs - 24 hr 05/02/22 09:08 05/02/22 10:15 05/02/22 11:23 Temperature 36.3 C L 36.5 C Pulse Rate 102 H 97 101 H Respiratory Rate 18 18 23 H Blood Pressure 132/70 130/77 80/39 L Pulse Oximetry 97 100 95 Oxygen Delivery Room Air Room Air 05/02/22 11:33 05/02/22 11:43 05/02/22 11:45 Temperature 36.8 C Pulse Rate 94 97 97 Respiratory Rate 21 H 21 H 21 H Blood Pressure 101/56 L 126/82 126/82 Pulse Oximetry 96 95 95 Oxygen Delivery Room Air Room Air 05/02/22 12:00 05/02/22 16:00 05/02/22 18:40 Temperature 36.9 C 36.9 C Pulse Rate 99 102 H Respiratory Rate 12 12 Blood Pressure 133/70 140/80 Pulse Oximetry 98 98 Oxygen Delivery Room Air 05/02/22 20:59 05/03/22 00:00 05/02/22 20:00 Temperature 36.1 C L 36.0 C L Pulse Rate 86 100 Respiratory Rate 18 18 Blood Pressure 129/63 129/67 Pulse Oximetry 98 97 Oxygen Delivery Room Air 05/03/22 04:15 Temperature 36.1 C L Pulse Rate 91 Respiratory Rate 20 Blood Pressure 145/69 H Pulse Oximetry 98 Oxygen Delivery Intake/Output Intake/Output: Intake & Output 04/30/22 05/01/22 05/02/22 05/03/22 23:59 23:59 23:59 23:59 Intake Total 1000 1524 1240 Output Total 250 Balance 1000 1524 990 Meds/Results Medications: Active Medications Generic Name Dose Route Start Last Admin Trade Name Freq PRN Reason Stop Dose Admin Acetaminophen 500 mg 05/02/22 04:10 Acetaminophen 500 Mg Tablet PO Q6H PRN fever or pain Alprazolam 0.25 mg 05/02/22 06:44 Alprazolam (*Crx) 0.25 Mg Tablet BY MOUTH TID PRN Anxiety Azathioprine 50 mg 05/02/22 09:00 05/02/22 17:54 Azathioprine 50 Mg Tablet PO 50 mg TID SIA Administration Baclofen 10 mg 05/02/22 09:00 05/02/22 17:54 Baclofen 10 Mg Tablet PO 10 mg BID SIA Administration Sodium Chloride 1,000 mls @ 70 mls/hr 05/01/22 23:40 05/03/22 06:34 Normal Saline Iv IV CONT 125 mls/hr .[id number] SIA Administration Miscellaneous Information 0 each 05/02/22 00:01 Methenamine Is Nonformulary - Can Patient Bring From Home? XX 06/01/22 00:00 CLARIFY SIA Non-Formulary Medication 1 gm 05/02/22 17:00 Methenamine Hippurate PO 06/01/22 16:59 BID SIA Pantoprazole Sodium 40 mg 05/02/22 09:00 05/02/22 08:59 Pantoprazole 40 Mg Tablet PO 40 mg DAILY SIA Administration Potassium Chloride 40 meq 05/03/22 09:45 Potassium Chloride 20 Meq Tablet PO 05/03/22 09:46 ONCE ONE Prednisone 5 mg 05/02/22 08:00 05/02/22 08:59 Prednisone 5 Mg Tablet PO 5 mg DAILY@0800 SIA Administration Prednisone 2 mg 05/02/22 08:00 05/02/22 08:59 Prednisone 1 Mg Tablet PO 2 mg DAILY@0800 SIA Administration Tramadol HCl 50 mg 05/02/22 04:20 05/02/22 22:57 Tramadol Hcl (*Crx) 50 Mg Tablet PO 50 mg Q12H PRN Administration Pain 7-10 Radiology Results: ITS Impressions Abdomen/Pelvis CTA 11/14/22 21:59 IMPRESSION: 1. Active contrast extravasation of t
[2022-05-03] MEDS: predniSONE 1 MG TABLET 2 MG PO (09:21)
[2022-05-03] MEDS: predniSONE 5 MG TABLET PO (09:21)
[2022-05-03] MEDS: azaTHIOprine 50 MG TABLET PO ×3 (09:22→17:55)
[2022-05-03] MEDS: BACLOFEN 10 MG TABLET PO ×2 (09:22→17:58)
[2022-05-03] MEDS: PANTOPRAZOLE 40 MG TABLET PO (09:22)
[2022-05-03] MEDS: traMADol HCL (*CRX) 50 MG TABLET PO ×2 (09:50→21:49)
[2022-05-03 09:58] VITALS: O2SAT 98
[2022-05-03 10:41] LABS: Potassium 3.1 mmol/L (3.4-5.0)
--- NOTE | 2022-05-03 12:41 | WPDANESPN ---
Anes - Prog Note Post-Op Date/Time: 05/03/22 12:41 Cardiovascular status: normal Respiratory status: normal Airway patency: baseline Mental status: baseline Post-Op hydration status: normal Vital Signs: Last Vital Signs Temp 36.1 C L 05/03/22 04:15 Pulse 91 05/03/22 04:15 Resp 20 05/03/22 04:15 BP 145/69 H 05/03/22 04:15 Pulse Ox 98 05/03/22 09:58 O2 Del Method Room Air 05/03/22 09:58 Pain Score (VAS): 0 I/O: Intake & Output 05/02/22 05/03/22 05/03/22 23:59 07:59 15:59 Intake Total 1240 600 Output Total 400 Balance 1240 200 Laboratory Tests 05/03/22 04:38 05/03/22 10:01 05/01/22 05/02/22 05/02/22 21:06 13:01 22:06 WBC 13.2 H 11.6 H RBC 3.30 L 2.95 L Hgb 10.2 L 9.1 L Hct 31.5 L 27.5 L MCV 95.5 93.2 MCH 30.9 30.8 MCHC 32.4 33.1 RDW 14.1 14.4 Plt Count 308 270 MPV 9.5 9.6 Immature Gran % (Auto) Neut % (Auto) Lymph % (Auto) [place] % (Auto) Eos % (Auto) Baso % (Auto) Lymph # (Auto) [place] # (Auto) Eos # (Auto) Baso # (Auto) Abs Immat Gran (auto) Absolute Neuts (auto) Absolute Nucleated RBC Nucleated RBC % Sodium Potassium Chloride Carbon Dioxide Anion Gap BUN Creatinine Estim Creat Clear Calc Estimated GFR Glucose POC Capillary Glucose Calcium Magnesium Total Bilirubin AST ALT Alkaline Phosphatase Total Protein Albumin Crossmatch See Detail 05/03/22 05/03/22 05/03/22 04:36 04:38 04:38 WBC 8.7 RBC 2.66 L Hgb 8.3 L Hct 25.5 L MCV 95.9 MCH 31.2 MCHC 32.5 RDW 14.7 H Plt Count 254 MPV 9.7 Immature Gran % (Auto) 0.6 H Neut % (Auto) 54.6 Lymph % (Auto) 30.4 [place] % (Auto) 11.5 H Eos % (Auto) 2.1 Baso % (Auto) 0.8 Lymph # (Auto) 2.64 [place] # (Auto) 1.0 H Eos # (Auto) 0.2 Baso # (Auto) 0.1 Abs Immat Gran (auto) 0.05 H Absolute Neuts (auto) 4.7 Absolute Nucleated RBC 0.0 Nucleated RBC % 0.0 Sodium 136 L Potassium 2.8 L* Chloride 110 H Carbon Dioxide 23 Anion Gap 3 L BUN 8 D Creatinine 0.30 L Estim Creat Clear Calc 125 Estimated GFR > 60 Glucose 115 H POC Capillary Glucose Calcium 7.7 L Magnesium 1.8 Total Bilirubin 0.3 AST 15 ALT 15 Alkaline Phosphatase 50 Total Protein 5.0 L Albumin 2.6 L Crossmatch 05/03/22 05/03/22 08:41 10:01 WBC RBC Hgb Hct MCV MCH MCHC RDW Plt Count MPV Immature Gran % (Auto) Neut % (Auto) Lymph % (Auto) [place] % (Auto) Eos % (Auto) Baso % (Auto) Lymph # (Auto) [place] # (Auto) Eos # (Auto) Baso # (Auto) Abs Immat Gran (auto) Absolute Neuts (auto) Absolute Nucleated RBC Nucleated RBC % Sodium Potassium 3.1 L Chloride Carbon Dioxide Anion Gap BUN Creatinine Estim Creat Clear Calc Estimated GFR Glucose POC Capillary Glucose 130 H Calcium Magnesium Total Bilirubin AST ALT Alkaline Phosphatase Total Protein Albumin Crossmatch Post-procedural complaints: none Patient Feedback: Patient satisfied with anesthetic care.
[2022-05-03 13:40] VITALS: BP 148/86; PULSE 109; RESP 16; TEMP 36.2; O2SAT 98
--- NOTE | 2022-05-03 14:36 | WPDGIPROGNO ---
Progress Note: A&P Assessment and Plan (1) Acute blood loss anemia: Code(s): D62 - Acute posthemorrhagic anemia Status: Acute Assessment and Plan: from diverticular bleeding, apparently stopped but will monitor ok to advance diet surgery in case she starts bleeding again (2) Diverticular hemorrhage: Code(s): K57.31 - Diverticulosis of large intestine without perforation or abscess with bleeding Status: Acute Assessment and Plan: found yesterday, left sided colon (3) Polymyositis: Code(s): M33.20 - Polymyositis, organ involvement unspecified Status: Acute (4) Bright red blood per rectum: Code(s): K62.5 - Hemorrhage of anus and rectum Status: Acute Subjective Date/time seen: 05/03/22 14:36 Interval history: colonoscopy yesterday with stigmata of diverticula bleeding from left colon but did not find culprit. She denies any more bleeding since. She is feeling great. Review of Systems Review of Systems: All systems reviewed & are unremarkable except as noted in HPI and below Exam Const: General: comfortable and no acute distress HENMT: Face/Nose/Sinus: Normal nares present Eyes: General: appearance normal, both eyes and all related structures Neck: Neck: no JVD Resp: Auscultation: clear to auscultation bilaterally Cardio: Rate: regular rate Rhythm: regular rhythm GI: Inspection: non-distended GI Palp: Yes Soft to palpation and No Tenderness to palpation present (GI) Auscultation: normal bowel sounds Skin: General skin exam: normal color Neuro: Speech: normal speech Extrem: General: normal to inspection Psych: Mental Status: mental status grossly normal Objective Data Vital Signs Vital Signs: Vital Signs - 24 hr 05/02/22 16:00 05/02/22 18:40 05/02/22 20:59 Temperature 98.5 F 97 F L Pulse Rate 102 H 86 Respiratory Rate 12 18 Blood Pressure 140/80 129/63 Pulse Oximetry 98 98 Oxygen Delivery Room Air 05/03/22 00:00 05/02/22 20:00 05/03/22 04:15 Temperature 96.8 F L 96.9 F L Pulse Rate 100 91 Respiratory Rate 18 20 Blood Pressure 129/67 145/69 H Pulse Oximetry 97 98 Oxygen Delivery Room Air 05/03/22 09:58 05/03/22 13:40 Temperature 97.2 F L Pulse Rate 109 H Respiratory Rate 16 Blood Pressure 148/86 H Pulse Oximetry 98 98 Oxygen Delivery Room Air Intake/Output Intake/Output: Intake & Output 04/30/22 05/01/22 05/02/22 05/03/22 23:59 23:59 23:59 23:59 Intake Total 1000 1524 2320 Output Total 400 Balance 1000 1524 1920 Meds/Results Medications: Active Medications Generic Name Dose Route Start Last Admin Trade Name Freq PRN Reason Stop Dose Admin Acetaminophen 500 mg 05/02/22 04:10 Acetaminophen 500 Mg Tablet PO Q6H PRN fever or pain Alprazolam 0.25 mg 05/02/22 06:44 Alprazolam (*Crx) 0.25 Mg Tablet BY MOUTH TID PRN Anxiety Ascorbic Acid 1,000 mg 05/03/22 17:00 Ascorbic Acid 500 Mg Tablet PO BID SIA Azathioprine 50 mg 05/02/22 09:00 05/03/22 14:13 Azathioprine 50 Mg Tablet PO 50 mg TID SIA Administration Baclofen 10 mg 05/02/22 09:00 05/03/22 09:22 Baclofen 10 Mg Tablet PO 10 mg BID SIA Administration Sodium Chloride 1,000 mls @ 70 mls/hr 05/01/22 23:40 05/03/22 06:34 Normal Saline Iv IV CONT 125 mls/hr .[id number] SIA Administration Miscellaneous Information 0 each 05/02/22 00:01 Methenamine Is Nonformulary-Send To Pharmacy For Verification Once Brought In XX 06/01/22 00:00 CLARIFY SAI Miscellaneous Information 1 each 05/03/22 14:20 Pharmacist Communication Order XX 05/03/22 14:21 ONCE ONE Non-Formulary Medication 1 gm 05/02/22 17:00 Methenamine Hippurate PO 06/01/22 16:59 BID SIA Pantoprazole Sodium 40 mg 05/02/22 09:00 05/03/22 09:22 Pantoprazole 40 Mg Tablet PO 40 mg DAILY SIA Administration Prednisone 5 mg 05/02/22 08:00 05/03/22 09:21
--- NOTE | 2022-05-03 15:18 | PHAR ---
RX [id number] IDENTIFIED TO CONTAIN: DRUG NAME: METHENAMINE HIPPURATE INGREDIENTS: METHENAMINE HIPPURATE -- 1 GM RELATED DOCUMENTS: DRUGDEX EVALUATIONS - METHENAMINE COLOR: WHITE TO OFF-WHITE SHAPE: CAPSULE-SHAPE IMPRINT: E 71 FORM: ORAL TABLET UNABLE TO IDENTIFY [facility] MAGNESIUM COMPLEX ULTRA BOTTLE SENT TO PHARMACY WITH UNMARKED WHITE CAPSULES UNABLE TO IDENTIFY NATURE MADE VIT C 1000MG BOTTLE SENT TO PHARMACY CONTAINS UNMARKED TABLETS
[2022-05-03] MEDS: ASCORBIC ACID 500 MG TABLET 1000 MG PO (21:11)
[2022-05-03 21:19] VITALS: BP 149/71; PULSE 90; RESP 18; TEMP 37.1; O2SAT 98
[2022-05-04] VITALS (7 sets, daily range): BP systolic 110–153; BP diastolic 58–75; PULSE 92–99; RESP 12–20; TEMP 36.6–37.2; O2SAT 94–99
[2022-05-04] MEDS: SODIUM CHLORIDE 0.9% IV 1,000 ML 70 ML IV CONT (01:46)
[2022-05-04 04:29] LABS: Basophils Absolute Auto 0.1 K/mm3 (0.0-0.1); Basophils Percent Auto 0.7 % (0.2-1.2); Eosinophils Absolute Auto 0.3 K/mm3 (0-0.3); Eosinophils Percent Auto 2.6 % (0-4.4); Hematocrit 24.2 % (37.0-47.0); Immature Granulocyte Absolute 0.04 K/mm3 (0.00-0.031); Immature Granulocyte Percent A 0.4 % (0-0.5); Lymphocytes Absolute Auto 2.63 K/mm3 (0.9-3.2); Mean Corpuscular HGB Conc 33.1 g/dl (32-36); Mean Corpuscular Hemoglobin 30.5 pg (26-34); Mean Corpuscular Volume 92.4 fl (80-100); Mean Platelet Volume 9.2 fl (7.4-10.4); Monocytes Absolute Auto 1.1 K/mm3 (0.1-0.6); Monocytes Percent Auto 11.6 % (2.6-8.5); Neutrophils Absolute Auto 5.6 K/mm3 (1.3-6.7); Neutrophils Percent Auto 57.7 % (45.5-73.1); Platelet Count Result 266 k/mm3 (150-375); Red Blood Count 2.62 M/mm3 (4.2-5.4); Red Cell Distribution Width 14.5 % (11.5-14.5); White Blood Count 9.8 K/mm3 (4.5-10.0)
[2022-05-04 04:39] LABS: Alanine Aminotransferase 15 U/L (6-35); Albumin Level 2.9 g/dL (3.5-5.1); Alkaline Phosphatase 65 U/L (38-126); Anion Gap 5 mmol/L (8-16); Aspartate Amino Transferase 19 U/L (14-36); Bilirubin,Total 0.5 mg/dL (0.2-1.3); Blood Urea Nitrogen 3 mg/dL (7-17); Carbon Dioxide 25 mmol/L (22-30); Chloride 107 mmol/L (98-107); Estimated CRCL calculation 125 ml/min; Estimated Glomerular Filt Rate > 60; Glucose 131 mg/dL (65-110); Magnesium 1.9 mg/dL (1.6-2.3); Potassium 3.3 mmol/L (3.4-5.0); Sodium 137 mmol/L (137-145)
--- NOTE | 2022-05-04 09:35 | WPDGIPROGNO ---
Progress Note: A&P Assessment and Plan (1) Acute blood loss anemia: Code(s): D62 - Acute posthemorrhagic anemia Status: Acute Assessment and Plan: from diverticular bleeding and unfortunately started bleeding again recommend to transfer to tertiary hospital to consider interventional radiology evaluation. Surgery is in the case, recent CTA showed bleeding from left colon (during colonoscopy found stigmata of recent bleeding same site) (2) Diverticular hemorrhage: Code(s): K57.31 - Diverticulosis of large intestine without perforation or abscess with bleeding Status: Acute Assessment and Plan: left sided colon, not longer bleeding when I did colonoscopy (3) Polymyositis: Code(s): M33.20 - Polymyositis, organ involvement unspecified Status: Acute (4) Bright red blood per rectum: Code(s): K62.5 - Hemorrhage of anus and rectum Status: Acute Subjective Date/time seen: 05/04/22 09:35 Interval history: she started passing clots with rectal bleeding again early this morning, feeling weak Review of Systems Review of Systems: All systems reviewed & are unremarkable except as noted in HPI and below Exam Const: General: comfortable and no acute distress HENMT: Face/Nose/Sinus: Normal nares present Eyes: General: appearance normal, both eyes and all related structures Neck: Neck: no JVD Resp: Auscultation: clear to auscultation bilaterally Cardio: Rate: regular rate Rhythm: regular rhythm GI: Inspection: non-distended GI Palp: Yes Soft to palpation and No Tenderness to palpation present (GI) Auscultation: normal bowel sounds Skin: General skin exam: normal color Neuro: Speech: normal speech Extrem: General: normal to inspection Psych: Mental Status: mental status grossly normal Objective Data Vital Signs Vital Signs: Vital Signs - 24 hr 05/03/22 09:58 05/03/22 13:40 05/03/22 21:19 Temperature 97.2 F L 98.8 F Pulse Rate 109 H 90 Respiratory Rate 16 18 Blood Pressure 148/86 H 149/71 H Pulse Oximetry 98 98 98 Oxygen Delivery Room Air 05/03/22 20:00 05/04/22 03:57 05/04/22 05:14 Temperature 98.2 F 98.2 F Pulse Rate 94 92 Respiratory Rate 20 18 Blood Pressure 148/70 H 142/70 H Pulse Oximetry 98 94 Oxygen Delivery Room Air Intake/Output Intake/Output: Intake & Output 05/01/22 05/02/22 05/03/22 05/04/22 23:59 23:59 23:59 23:59 Intake Total 1000 1524 3910 1250 Output Total 400 1400 Balance 1000 1524 3510 -150 Meds/Results Medications: Active Medications Generic Name Dose Route Start Last Admin Trade Name Freq PRN Reason Stop Dose Admin Acetaminophen 500 mg 05/02/22 04:10 Acetaminophen 500 Mg Tablet PO Q6H PRN fever or pain Alprazolam 0.25 mg 05/02/22 06:44 Alprazolam (*Crx) 0.25 Mg Tablet BY MOUTH TID PRN Anxiety Ascorbic Acid 1,000 mg 05/03/22 17:00 05/03/22 21:11 Ascorbic Acid 500 Mg Tablet PO 1,000 mg BID SIA Administration Azathioprine 50 mg 05/02/22 09:00 05/03/22 17:55 Azathioprine 50 Mg Tablet PO 50 mg TID SIA Administration Baclofen 10 mg 05/02/22 09:00 05/03/22 17:58 Baclofen 10 Mg Tablet PO 10 mg BID SIA Administration Home Med 1 each 05/03/22 17:00 05/03/22 21:11 Home Medication (Methenamine Hippurate 1 Gram Tablet) PO 06/02/22 16:59 1 each BID SIA Administration Sodium Chloride 1,000 mls @ 70 mls/hr 05/01/22 23:40 05/04/22 01:46 Normal Saline Iv IV CONT 70 mls/hr .[id number] SIA Administration Sodium Chloride 250 mls @ 30 mls/hr 05/04/22 09:22 Normal Saline Iv IV CONT 05/04/22 17:41 .Q8H20M STA Nonformulary Drug 1 each 05/03/22 17:00 Magnesium Complex XX 06/02/22 16:59 Ultra 1 BID SIA Pantoprazole Sodium 40 mg 05/02/22 09:00 05/03/22 09:22 Pantoprazole 40 Mg Tablet PO 40 mg DAILY SIA Administration Prednisone 5 mg 05/02/22 08:00 05/03/22 09:21 Prednisone
[2022-05-04 09:38] LABS: Hematocrit 23.9 % (37.0-47.0); Hemoglobin 7.7 g/dL (12.0-15.0)
[2022-05-04] MEDS: SODIUM CHLORIDE 0.9% IV 250 ML 30 ML IV CONT (10:50)
--- NOTE | 2022-05-04 11:07 | PM.PNGS ---
Progress Note: A&P Assessment and Plan (1) Diverticular hemorrhage: Code(s): K57.31 - Diverticulosis of large intestine without perforation or abscess with bleeding Status: Acute Assessment and Plan: long d/w pt and plan to transfer to tertiary facility c IR angiogram capabilities, pt getting ready for transfusion of PRBC #2 since admission, if need for emergent surgical intervention we will be available Subjective Subjective Date/Time Seen: 05/04/22 11:07 further bleeding overnight, H/H trending down again, feels weak Review of Systems Review of Systems: All systems reviewed & are unremarkable except as noted in HPI and below Exam Const: General: cooperative, comfortable, no acute distress and tired appearing Resp: Auscultation: clear to auscultation bilaterally Cardio: Rate: regular rate Rhythm: regular rhythm GI: Inspection: normal to inspection and non-distended GI Palp: No abdominal tenderness, Yes Soft to palpation, No Tenderness to palpation present (GI), No Guarding due to palpation present (GI) and No Rigid due to palpation Objective Data Vital Signs Vital Signs: Vital Signs - 24 hr 05/03/22 13:40 05/03/22 21:19 05/03/22 20:00 Temperature 36.2 C L 37.1 C Pulse Rate 109 H 90 Respiratory Rate 16 18 Blood Pressure 148/86 H 149/71 H Pulse Oximetry 98 98 Oxygen Delivery Room Air 05/04/22 03:57 05/04/22 05:14 05/04/22 08:00 Temperature 36.8 C 36.8 C Pulse Rate 94 92 Respiratory Rate 20 18 Blood Pressure 148/70 H 142/70 H Pulse Oximetry 98 94 Oxygen Delivery Room Air 05/04/22 08:35 05/04/22 10:50 Temperature 36.6 C 37.1 C Pulse Rate 98 97 Respiratory Rate 12 14 Blood Pressure 153/72 H 115/58 L Pulse Oximetry 96 96 Oxygen Delivery Intake/Output Intake/Output: Intake & Output 05/01/22 05/02/22 05/03/22 05/04/22 23:59 23:59 23:59 23:59 Intake Total 1000 1524 3910 1250 Output Total 400 1400 Balance 1000 1524 3510 -150 Meds/Results Medications: Active Medications Generic Name Dose Route Start Last Admin Trade Name Freq PRN Reason Stop Dose Admin Acetaminophen 500 mg 05/02/22 04:10 Acetaminophen 500 Mg Tablet PO Q6H PRN fever or pain Alprazolam 0.25 mg 05/02/22 06:44 Alprazolam (*Crx) 0.25 Mg Tablet BY MOUTH TID PRN Anxiety Ascorbic Acid 1,000 mg 05/03/22 17:00 05/04/22 10:00 Ascorbic Acid 500 Mg Tablet PO Not Given BID SIA Azathioprine 50 mg 05/02/22 09:00 05/04/22 10:00 Azathioprine 50 Mg Tablet PO Not Given TID SIA Baclofen 10 mg 05/02/22 09:00 05/04/22 10:00 Baclofen 10 Mg Tablet PO Not Given BID SIA Home Med 1 each 05/03/22 17:00 05/04/22 10:00 Home Medication (Methenamine Hippurate 1 Gram Tablet) PO 06/02/22 16:59 Not Given BID SIA Sodium Chloride 1,000 mls @ 70 mls/hr 05/01/22 23:40 05/04/22 01:46 Normal Saline Iv IV CONT 70 mls/hr .[id number] SIA Administration Sodium Chloride 250 mls @ 30 mls/hr 05/04/22 09:22 05/04/22 10:50 Normal Saline Iv IV CONT 05/04/22 17:41 30 mls/hr .Q8H20M STA Administration Nonformulary Drug 1 each 05/03/22 17:00 Magnesium Complex XX 06/02/22 16:59 Ultra 1 BID [facility] Pantoprazole Sodium 40 mg 05/02/22 09:00 05/04/22 10:00 Pantoprazole 40 Mg Tablet PO Not Given DAILY [facility] Prednisone 5 mg 05/02/22 08:00 05/04/22 10:00 Prednisone 5 Mg Tablet PO Not Given DAILY@0800 [facility] Prednisone 2 mg 05/02/22 08:00 05/04/22 10:00 Prednisone 1 Mg Tablet PO Not Given DAILY@0800 [facility] Tramadol HCl 50 mg 05/02/22 04:20 05/03/22 21:49 Tramadol Hcl (*Crx) 50 Mg Tablet PO 50 mg Q12H PRN Administration Pain 7-10 Radiology Results: ITS Impressions Abdomen/Pelvis CTA 05/01/22 21:59 IMPRESSION: 1. Active contrast extravasation of the sigmoid colon likely related to bleeding diverticula. GI evaluation is recommended. 2. Multiple cystic lesions of the pancreas. The
--- NOTE | 2022-05-04 11:23 | PCOTNOTE ---
Attempted to see pt. for occupational therapy evaluation. Per nursing pt. is having active rectal bleeding and passing clots, while receiving blood transfusion. Per nursing, hospitalist had mentioned bedrest orders for pt. for today. Attempted to follow up with hospitalist without answer. Waiting to confirm safety of evaluation. Nursing aware. Following.
--- NOTE | 2022-05-04 13:41 | PM.TDS ---
Transfer Discharge Sum: Prov Provider Date of admission: 05/02/22 11:03 Primary care physician: Richard Rouse, MD Admitting clinician: Jessica Laura DO Consults: 05/01/22 23:39 Consult to Physician Routine Comment: Consulting Provider: Allen Humphrey Reason for consultation: GI bleed Has provider been notified: Yes 05/02/22 11:51 Consult to Physician Routine Comment: Called office and notified them of consult Consulting Provider: Sofía Rader junior accountant bookkeeper/MD group to consult: surgery Reason for consultation: diverticula bleeding Has provider been notified: Yes DS: Admitting Diagnosis Discharge Date 05/04/2022 Admitting Diagnosis GI bleed DS: Discharge Diagnosis Discharge Diagnosis (1) Diverticular hemorrhage: Code(s): K57.31 - Diverticulosis of large intestine without perforation or abscess with bleeding Status: Acute (2) GERD (gastroesophageal reflux disease): Qualifiers: Esophagitis presence: esophagitis presence not specified Qualified Code(s): K21.9 - Gastro-esophageal reflux disease without esophagitis Code(s): K21.9 - Gastro-esophageal reflux disease without esophagitis Status: Acute (3) Essential hypertension: Code(s): I10 - Essential (primary) hypertension Status: Acute (4) Hyperglycemia: Code(s): R73.9 - Hyperglycemia, unspecified Status: Acute (5) Polymyositis: Code(s): M33.20 - Polymyositis, organ involvement unspecified Status: Acute Transfer Discharge Sum: Med Medications Active and Home Medications: Home Medications acetaminophen 500 mg capsule 500 mg PO Q6H PRN fever or pain #30 caps 12/25/19 [Rx Confirmed 05/02/22] alprazolam 0.25 mg tablet 2.5 mg PO QHS PRN Sleep 12/25/19 [History Confirmed 05/02/22] amlodipine 2.5 mg tablet 7.5 mg PO DAILY 12/25/19 [History Confirmed 05/02/22] azathioprine 50 mg tablet 50 mg PO TID 12/25/19 [History Confirmed 05/02/22] baclofen 10 mg tablet 10 mg PO BID 12/25/19 [History Confirmed 05/02/22] ibuprofen 400 mg tablet 400 mg PO TID PRN fever or pain 10 days #30 tabs 12/25/19 [Rx Confirmed 05/02/22] pantoprazole 40 mg tablet,delayed release 40 mg PO DAILY 12/25/19 [History Confirmed 05/02/22] prednisone 1 mg tablet 2 mg PO DAILY 12/25/19 [History Confirmed 05/02/22] prednisone 5 mg tablet 5 mg PO DAILY 12/25/19 [History Confirmed 05/02/22] tramadol 50 mg tablet 50 mg PO PRN PRN Pain 12/25/19 [History Confirmed 05/02/22] methenamine hippurate 1 gram tablet 1 g PO BID 05/02/22 [History Confirmed 05/02/22] Active Medications Acetaminophen (Acetaminophen 500 Mg Tablet) 500 mg PO Q6H PRN PRN Reason: fever or pain Alprazolam (Alprazolam (*Crx) 0.25 Mg Tablet) 0.25 mg BY MOUTH TID PRN PRN Reason: Anxiety Ascorbic Acid (Ascorbic Acid 500 Mg Tablet) 1,000 mg PO BID [facility] Last Admin: 05/04/22 10:00 Dose: Not Given Azathioprine (Azathioprine 50 Mg Tablet) 50 mg PO TID [facility] Last Admin: 05/04/22 12:57 Dose: Not Given Baclofen (Baclofen 10 Mg Tablet) 10 mg PO BID [facility] Last Admin: 05/04/22 10:00 Dose: Not Given Home Med (Home Medication (Methenamine Hippurate 1 Gram Tablet)) 1 each PO BID [facility] Stop: 06/02/22 16:59 Last Admin: 05/04/22 10:00 Dose: Not Given Sodium Chloride (Normal Saline Iv) 1,000 mls @ 70 mls/hr IV CONT .[id number] [facility] Last Admin: 05/04/22 01:46 Dose: 70 mls/hr Sodium Chloride (Normal Saline Iv) 250 mls @ 30 mls/hr IV CONT .Q8H20M STA Stop: 05/04/22 17:41 Last Admin: 05/04/22 10:50 Dose: 30 mls/hr Nonformulary Drug Magnesium Complex Ultra 1 1 each XX BID [facility] Stop: 06/02/22 16:59 Ondansetron HCl (Ondansetron Inj 4 Mg/2 Ml Vial) 4 mg IV PUSH Q4H PRN PRN Reason: Nausea And Vomiting Pantoprazole Sodium (Pantoprazole 40 Mg Tablet) 40 mg PO DAILY [facility] Last Admin: 05/04/22 10:00 Dose: Not Given Prednisone (Prednisone 5 Mg Tablet) 5 mg PO DAILY@0800 [facility] Last Admin: 05/04/22 10:00 Dose: Not Given Pre
--- NOTE | 2022-05-04 13:56 | PC.NURSE ---
Patient being transferred to [facility] [place]. Currently has 1 unit of PRBC running. Patient being transferred by ACLS. Amount administered was 265ml when patient left. Paramedics aware of time that blood needs to end and how much is left.
== END 2022-05-04 14:00 | disposition short-term general hospital (02) | DRG 378 ==
LOC: ANHED 21:28 → ANHIMU 23:47 → ANH2MED 05-02 18:47
PROVIDERS: Internal Medicine; Internal Medicine Gastroenterology; Student in an Organized Health Care Education/Training Program; Admitting Provider Internal Medicine; Emergency Provider Preventive Medicine Aerospace Medicine; PCP Internal Medicine; Visit Provider Internal Medicine
PROC: 0DJD8ZZ Inspection of Lower Intestinal Tract, Via Natural or Artificial Opening Endoscopic (ICD-10-PCS; CPT 45378; principal; 2022-05-02 12:30)
DX: K57.31 Diverticulosis of large intestine without perforation or abscess with bleeding (principal); D62 Acute posthemorrhagic anemia; M33.20 Polymyositis, organ involvement unspecified; E11.65 Type 2 diabetes mellitus with hyperglycemia; K21.9 Gastro-esophageal reflux disease without esophagitis; I10 Essential (primary) hypertension; E87.6 Hypokalemia; Z20.822 Contact with and (suspected) exposure to COVID-19; Z28.21 Immunization not carried out because of patient refusal; Z79.52 Long term (current) use of systemic steroids; Z79.899 Other long term (current) drug therapy
CPT/HCPCS: 36415; 36430; 74174; 80048; 80053; 82948; 83605; 83735; 84132; 85014; 85018; 85025; 85027; 85610; 85730; 86850; 86900; 86901; 86920; 96361; 96374; 99285; A9270; C9113; G0378; J2704; J7030; J7050; J7120; J7512; P9016; Q9967; U0003; U0005

== ENCOUNTER 2023-12-24 09:16 | Outpatient (RCR) | payer MEDICARE, SELFPAY ==
[2023-12-24 10:06] VITALS: BMI 30.2
== END 2024-02-20 15:05 | disposition home or self-care (01) ==
LOC: ANHWOC 09:16
PROVIDERS: PCP Internal Medicine; Visit Provider Internal Medicine
DX: S81.801D Unspecified open wound, right lower leg, subsequent encounter (principal)
CPT/HCPCS: 99213; G0463

== ENCOUNTER 2025-04-24 11:23 | Emergency (ER) | payer MEDICARE, SELFPAY ==
--- OUTSIDE RECORDS SUMMARY | 2009-12-31 05:00 | XMS_ITS | Continuity of Care Document ---
Author Organization [facility] Address [address] [place] [address] [address] [place] [address] Phone Care Team Providers Care Power Nut Runner Operator Name Role Phone Ezequiel Mueller Unavailable Unavailable Procedures Procedure Date Visual Field Examination(s) Office/outpatient Visit, Est Office/outpatient Visit, Est Office/outpatient Visit, Est Visual Field Examination(s) Office/outpatient Visit, Est Office/outpatient Visit, Est Eye Exam Established Pt Visual Field Examination(s) Eye Exam & Treatment Advance Directives Directive Yes / No Effective Date File Name No Information Encounters Encounter Description Practice Location Reason(s) For Visit Diagnoses Date Provider Providers Copied on Encounter [facility], [address] [place] [address] [address], [place], [place], [id number], [place] tel:[phone] SEC [facility] No Information 0 Ami Nieves. [address] [place] [address], [place], [address], [place]. tel:[phone] Referring Provider: Ezequiel perez [address] [address], [place], [place], [facility]. tel:[phone] Office/outpat ient Visit, Est [facility], [address] [place] [address] [address], [place], [place], [address], [place] tel:[phone] SEC [facility] No Information 2-201 0 Krishnasamy Ezequiel. [address] [facility] [address], [place], [address], [place]. tel:[phone] Office/outpat ient Visit, [facility], [address], [place], [place], [id number], [place] tel:[phone] SEC [facility] No Information 0 Krishnasamy Ezequiel. [address] [facility], [place], [place], [facility], [place]. tel:[phone] Office/outpat ient Visit, [facility], [address], [place], [place], [id number], [place] tel:[phone] SEC [facility] No Information 0 Krishnasamy Ezequiel. [address] [place] [address], [facility], [place]. tel:[phone] [facility] Eye [facility], [address], [place], [place], [address], [place] tel:[phone] SEC [facility] No Information 9 Krishnasamy Ezequiel. [address] [place] [address], [facility], [place]. tel:[phone] Referring Provider: Ezequiel perez, [address] [place], [place] [address]ate [address], [facility]. tel:[phone] Office/outpat ient Visit, [facility], [address], [place], [place], [address], [place] tel:[phone] SEC [facility] No Information 200 8 Krishnasamy Ezequiel. [address] [place] [address], [facility], [place]. tel:[phone] Office/outpat ient Visit, Est [facility], [address], [place], [place], [address], [place] tel:[phone] SEC [facility] No Information 0-200 8 Krishnasamy Ezequiel. [address] [facility] [address], [place], [address], [place]. tel:[phone] [facility], [address], [place], [place], [address], [place] tel:[phone] SEC [facility] No Information 7-200 8 Krishnasamy Ezequiel. [address] [facility] [address], [place], [address], [place]. tel:[phone] [facility], [address], [place], [place], [address], [place] tel:[phone] SEC [facility] No Information 4-200 8 Angie Mcclain. [address] [facility], [address] [place], [address], [place]. tel:[phone] Referring Provider: Johny Dailey, [address] [facility] [address], [place], [address] . tel:[phone] [facility], [address] [facility] [address], [place], [place], [address], [place] tel:[phone] SEC [facility] No Information 1200 7 Angie Mcclain. [address] [facility], [address] [place], [address], [place]. tel:[phone] Family History Family Member Type Diagnosis Age At Onset No Information Payers Payer name Insurance type Covered democrat ID Authoriza tion(s) No Information Social History Type Description Quantity Date Captured Comments Sex Female Smoking Status No Information Chief Complaint And Reason For Visit No Information Reason For Referral Reason For Referral No Information History Of Present Illness Encounter Date Complaint History Of Prese nt Illness No Information Functional Status Date Functional Assessmen t No Information Instructions Date Instruction Additional Infor mation No Information Assessments Type Assessment Date No Information Patient Care Teams Name Effective Dates (start - stop) Status Members No Information
--- OUTSIDE RECORDS SUMMARY | 2009-12-31 05:00 | XMS_ITS | Continuity of Care Document ---
Author Organization [facility] Address [address] [place] [address] [address] [place] [address] Phone Care Team Providers Care Informatics Manager Name Role Phone Ezequiel Mueller Unavailable Unavailable [...] Diagnoses Date Provider Providers Copied on Encounter [facility], [address] [place] [address] [address], [place], [place], [id number], [place] tel:[phone] SEC [facility] No Information 0 Ami Nieves. [address] [place] [address], [place], [address], [place]. tel:[phone] Referring Provider: Ezequiel perez [address] [address], [place], [place], [facility]. tel:[phone] Office/outpat ient Visit, Est [facility], [address] [place] [address] [address], [place], [place], [address], [place] tel:[phone] SEC [facility] No Information 2-201 0 Krishnasamy Ezequiel. [address] [facility] [address], [place], [address], [place]. tel:[phone] Office/outpat ient Visit, [facility] Eye [facility], [address], [place], [place], [address], [place] tel:[phone] SEC [facility] No Information 0 Krishnasamy Ezequiel. [address] [facility] [address], [place], [place], [facility], [place]. tel:[phone] Office/outpat ient Visit, [facility] Eye [facility], [address], [place], [place], [address], [place] tel:[phone] SEC [facility] No Information 0 Krishnasamy Ezequiel. [address] [place] [address], [facility], [place]. tel:[phone] [facility] Eye [facility], [address], [place], [place], [address], [place] tel:[phone] SEC [facility] No Information 9 Krishnasamy Ezequiel. [address] [place] [address], [facility], [place]. tel:[phone] Referring Provider: Ezequiel perez, [address] [place], [place] [address] [address], [facility]. tel:[phone] Office/outpat ient Visit, [facility], [address], [place], [place], [address], [place] tel:[phone] SEC [facility] No Information 200 8 Krishnasamy Ezequiel. [address] [place] [address], [facility], [place]. tel:[phone] Office/outpat ient Visit, Est [facility], [address], [place], [place], [address], [place] tel:[phone] SEC [facility] No Information 0-200 8 Krishnasamy Ezequiel. [address] [facility] [address], [place], [address], [place]. tel:[phone] [facility], [address], [place], [place], [address], [place] tel:[phone] SEC [facility] No Information 7-200 8 Krishnasamy Ezequiel. [address] [facility] [address], [place], [address], [place]. tel:[phone] [facility], [address], [place], [place], [address], [place] tel:[phone] SEC [facility] No Information 4-200 8 Angie Mcclain. [address] [facility], [address], [address], [place]. tel:[phone] Referring Provider: Johny Dailey, [address] [facility] [address], [place], [address] . tel:[phone] [facility], [address] [facility] [address], [place], [place], [address], [place] tel:[phone] [facility] No Information 1200 7 Angie Mcclain. [address] [facility], [address], [address], [place]. tel:[phone] Family History Family Member Type Diagnosis Age At Onset No Information Payers Payer name Insurance type Covered constitution party ID Authoriza tion(s) No Information Social History [...]
--- OUTSIDE RECORDS SUMMARY | 2025-02-25 07:15 | XMS_ITS | Continuity of Care Document ---
Author Organization [facility] Address [address] [place] [phone] Phone Care Team Providers Care Pupil Personnel Worker Name Role Phone Nisha MENENDEZ, FAC, Alex Unavailable Unavailab le Procedures Procedure Date TTE W/DOPPLER, COMPLETE Results Test Name Date and Time Measure Units Reference Range Abnormal Flag Status Comments Panel Description: Not Available Final [{Url}] <Url iRemMajorVer tariq=1 iRemMinorVer tariq=5.9.4 seq_no=3310 [id number] im-[id number] q9e6c39m template_nam e=PacsEx>< Path><![CDAT A[[email or web address] N9Q6kTxIPusc sG9Yc2SDWKsh iqcms6qBQ/P+ X/or5zZdmoPy Vec/6Yf7Z8zj fokIPxPL6tWK DbDWmhSUlCud tfl5EkWGOIJL 29JcEaVQd9Lk +Yy5D2o5+Ef1 ]]></Path></ Url> Final Panel Description: ECHO Unknown Image ECHO 1 Advance Directives Directive Yes / No Effective Date File Name No Information Encounters Encounter Description Practice Location Reason(s) For Visit Diagnoses Date Provider Providers Copied on Encounter [facility], [address] [place] [address], [id number], tel:[phone] [facility] [place] No Information Nisha Johnson. [address] [place] [address] Rd, [place], [place], [id number], [place]. tel:[phone] Referring Provider: Richard Rouse, [address] [facility] [address], [place], [address]. tel:[phone] Family History Family Member Type Diagnosis Age At Onset No Information Payers Payer name Insurance type Covered alliance party ID Authoriza tion(s) [place] [id number] NO AUTH RE QUIRED AETNA SENIOR SUPPLEMENTAL INS CI [id number] Social History Type Description Quantity Date Captured [...]
--- OUTSIDE RECORDS SUMMARY | 2025-02-25 07:15 | XMS_ITS | Continuity of Care Document ---
Author Organization [facility] Address [address] [place] [phone] Phone Care Team Providers Care Founder / Ceo Name Role Phone Nisha MENENDEZ, FAC, Alex Unavailable Unavailab le Procedures Procedure Date TTE W/DOPPLER, COMPLETE Results Test Name Date and Time Measure Units Reference Range Abnormal Flag Status Comments Panel Description: Not Available Final [{Url}] <Url iRemMajorVer tariq=1 iRemMinorVer tariq=5.9.4 seq_no=3310 [id number] [id number] q5c8x76w template_nam e=PacsEx>< Path><![CDAT A[[email or web address] Y6C4cZgXEgqd rM4Hz6DNVViv bvktc3jAW/P+ X/qc6mEsjaOt Vec/3Qe2J0vf ijeINcFE7hIC DbDWmhSUlCud pdw3SxHZQDZO 76TvPnDRz9Ah +Fw2I2w3+Ef1 ]]></Path></ Url> Final Panel Description: ECHO Unknown Image ECHO 1 Advance Directives Directive Yes / No Effective Date File Name No Information Encounters Encounter Description Practice Location Reason(s) For Visit Diagnoses Date Provider Providers Copied on Encounter [facility], [address] [place] [address], [id number], tel:[phone] [facility] [place] No Information Nisha Johnson. [address] [place] [address] Rd, [place], [place], [id number], [place]. tel:[phone] Referring Provider: Richard Rouse, [address] [facility] [address], [place], [address]. tel:[phone] Family History Family Member Type Diagnosis Age At Onset No Information Payers Payer name Insurance type Covered libertarian ID Authoriza tion(s) [place] CI [id number] NO AUTH RE QUIRED AETNA SENIOR SUPPLEMENTAL INS CI [id number] Social History Type Description Quantity Date Captured [...]
[2025-04-24] VITALS (50 sets, daily range): BP systolic 124–157; BP diastolic 71–98; PULSE 97–107; RESP 16–18; TEMP 36.3–36.7; O2SAT 91–99
--- NOTE | ~2025-04-24 | CT_ITS ---
EXAMINATION: CT abdomen pelvis w con DATE: 04/24/2025 17:18 INDICATION: Leaking stool. Constipation. TECHNIQUE: Computed tomography (CT) of the abdomen and pelvis was performed with 100 cc Omnipaque 350 intravenous contrast. The dose-length product was 660.57 mGy-cm. Automated exposure control and iterative reconstruction technique were employed. COMPARISON: CT dated 05/01/2022 FINDINGS: There is right lower lobe airspace consolidation. No pneumothorax. Mild atherosclerosis of the aorta. No aneurysm identified. No significant pleural or pericardial effusion. Status post cholecystectomy with expected prominence of the bile ducts. There is a new enhancing 2 cm vascular structure in the liver with feeding vessels The spleen, adrenal glands are unremarkable. There is an extrarenal pelvis of the right kidney. There are bilateral renal cysts. There are pancreatic cysts with the largest being at the tail measuring 1.4 cm compared with 1 cm on prior examination. Moderate colonic fecal loading. There is pelvic relaxation. Normal appendix. Nonobstructive bowel pattern. No free air or free fluid. Severe thoracic and lumbar spondylosis. There is scoliosis. 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 IMPRESSION: 1. Fecal impaction of the colon with pelvic relaxation. 2: Multiple pancreatic cysts with enlargement of the dominant cyst in the pancreatic tail measuring 1.4 cm. The differential diagnosis includes pseudocyst, or less likely considerations include intraductal papillary mucinous neoplasm (IPMN), mucinous cystic neoplasm (MCN), and the less common serous cy stadenoma and neuroendocrine tumor. 3: Enhancing vascular structure measuring 2 cm in the dome of the liver, new compared with prior study. There are associated feeding vessels. Differential diagnosis includes arterial portal shunt, arteriovenous malformation/shunt, and less likely etiologies such as hepatic adenoma and malignant hypervascular lesions. Reviewed, dictated and finalized at location [facility] IMPRESSION: 1. Fecal impaction of the colon with pelvic relaxation. 2: Multiple pancreatic cysts with enlargement of the dominant cyst in the pancr eatic tail measuring 1.4 cm. The differential diagnosis includes pseudocyst, or less likely considerations include intraductal papillary mucinous neoplasm (IP MN), mucinous cystic neoplasm (MCN), and the less common serous cystadenoma and neuroendocrine tumor. 3: Enhancing vascular structure measuring 2 cm in the dome of the liver, new c ompared with prior study. There are associated feeding vessels. Differential di agnosis includes arterial portal shunt, arteriovenous malformation/shunt, and l ess likely etiologies such as hepatic adenoma and malignant hypervascular lesio ns.
--- OUTSIDE RECORDS SUMMARY | 2025-04-24 12:02 | XMS_ITS | Clinical Summary ---
Author Organization [facility] Address [address] [place] [address] Care Team Providers Care Seat Pack Inspector Name Role Phone Richard Rouse MD Primary Care Provider [phone] Source Comments [facility],non-owned Affiliates and Associated Physician Practices is amultiple site organization consisting of ambulatory clinics and hospital sitesin [place], [place], [place] and [place]. This disclosure is being madepursuant to the Care Everywhere program and may not contain all information available regarding this patient. Last updated 18.[facility] Allergies Active Allergy Reactions Criticality Noted Date Comments Cephalexin Urticaria Medium 05/04/2022 Levofloxacin Other Medium 05/05/2022 Joint pain Medications * Be aware that medications may not be up to date on this document. Alwaysverify current medications with the patient. predniSONE (Deltasone) 5 MG tablet Take 1 (one) tablet by mouth once daily Active ALPRAZolam (Xanax) 0.25 MG tablet Take 1 (one) tablet by mouth nightly as needed for Anxiety Active azaTHIOprine (Imuran) 50 MG tablet Take 1 (one) tablet by mouth 3 times daily Active baclofen (Lioresal) 10 MG tablet Take 1 (one) tablet by mouth 2 times daily May cause drowsiness. Active predniSONE (Deltasone) 1 MG tablet Take 2 (two) tablets by mouth once daily Active amLODIPine (Norvasc) 2.5 MG tablet Take 3 (three) tablets by mouth once daily Active pantoprazole EC (Protonix) 40 MG tablet Take 1 (one) tablet by mouth once daily Active traMADol (Ultram) 50 MG tablet Take 1 (one) tablet by mouth 2 times daily as needed for Pain Active acetaminophen (Tylenol) 500 MG tablet Take 1 (one) tablet by mouth every 6 hours as needed for Fever or Pain Maximum allowable Acetaminophen amount = 4 Grams (4000 mg) / 24 hours. Active methenamine hippurate (Hiprex) 1 GM tablet Take 1 (one) tablet by mouth 2 times daily Active Active Problems Problem Noted Date Diagnosed Date Gastrointestinal hemorrhage, unspecified gastrointestinal hemorrhage type 05/04/2022 Immunizations Immunization Administration Dates Next Due INFLUENZA VACCINE, TRIV. (AF LURIA, FLUZONE TRIVALENT; 6MO+) (IIV3) 04/02/2013 Covid [employer] primary monoval ent 12+ yr 0.3mL Purple cap 11/06/2021,03/29/2021,08/13/2020,2020 FLU VACCINE QUAD IIV4 SPLIT 0.25 ML IM 03/24/2015 INFLUENZA VACCINE, HIGH-DOSE , QUADR. (FLUZONE HIGH-DOSE QUADRIVALENT; 65Y+), 0.7 ML (HD-IIV4) 03/31/2022,03/25/2021,03/19/2020,2017,04/04/2017 PNEUMOCOCCAL PPSV23 04/04/2017 Pneumococcal Pcv13 Conj 03/23/2016 Family History Medical History Relation Name Comments Congenital Heart defect Father Relation Name Status Comments Father Social History Tobacco Use Types Packs/Day Years Used Date Smoking Tobacco: Never Smokeless Tobacco: Never Tobacco Cessation:Counseling Given: Not Answered Alcohol Use Standard Drinks/Week Comments Not Currently 0 (1 standard drink = 0.6 oz pur e alcohol) 1 DRINK PER WEEK Hunger Vital Sign Answer Date Recorded Within the past 12 months, y ou worried that your food would run out before you got the money to buy more. Never true 05/05/20 22 Within the past 12 months, t he food you bought just didn't last and you didn't have money to get more. Never true 05/05/2022 Comments Unknown Sex and Gender Information Value Date Recorded Sex Assigned at Not on file Legal Sex Female 5:42 AM SIZE WORKER Gender Identity Not on file Sexual Orientation Not on file Last Filed Vital Signs Vital Sign Reading Time Taken Comments Blood Pressure 139/78 05/08/2022 12:01 PM SIZE WORKER Pulse 105 05/08/2022 12:01 PM SIZE WORKER Temperature 37.3 C (99.2 F) 05/08/2022 12:01 PM SIZE WORKER Respiratory Rate 18 05/08/2022 12:01 PM SIZE WORKER Oxygen Saturation 96% 05/08/2022 12:01 PM SIZE WORKER Inhaled Oxygen Concentration - - Weight 74.1 kg (163 lb 4.8 oz) 05/04/2022 3:10 P M SIZE WORKER Height 154.9 cm (5' 1) 05/04/2022 3:10 PM SIZE WORKER Body Mass Index 30.86 05/04/2022 3:10 PM SIZE WORKER Plan of Treatment Health Maintenance Due Date Last Done Comments BONE DENSITY TESTING 1950 COLOGUARD (AGES 45-75) - COLON CA SCREENING 1950 COLON MONITORING 1950 COLONOSCOPY - COLON CA SCREENING 1950 CT COLONOGRAPHY - COLON CA SCREENING 1950 Colorectal Cancer Screening 1950 FIT - COLON CA SCREENING 1950 FLEX SIG - COLON CA SCREENING 1950 LIPID TESTING 1950 MAMMOGRAM 1950 MEDICARE AWV 12 MONTHS 1950 HEPATITIS C SCREENING 05/18/1968 DTAP/TDAP/TD VACCINES (1 - Tdap) 1969 ZOSTER VACCINE (1 of 2) 1969 Respiratory Syncytial Virus (RSV) Vaccine Pt: or over 60 yrs (1 - Risk 60-74 years 1-dose series) 2010 DEPRESSION SCREENING 06/18/2024 COVID-19 VACCINE (2024- season) 2025 11/06/2021, 03/29/2021, 08/13/2020, Additional history exists INFLUENZA VACCINE (#1) 2025 2, 03/25/2021, 03/19/2020, Additional history exists PNEUMOCOCCAL VACCINE 50+ Completed 04/04/2017, 11/2015 HEPATITIS B VACCINE Aged Out No longe r eligible based on patient's age to complete this topic HIB VACCINE Aged Out No longer eligi ble based on patient's age to complete this topic HPV VACCINE Aged Out No longer eligi ble based on patient's age to complete this topic MENINGOCOCCAL (Group B) VACCINE SHARED DECISION-MAKING Aged Out No longer eligible based on patient's age to complete this topic MENINGOCOCCAL GROUPS A/C/Y/W VACCINE Aged Out No longer eligible based on patient's age to complete this topic Insurance MEDICARE AETNA AETNA MEDICARE Advance Directives * Full Code (Latest Code Status on File) Date Activated Date Inactivated Comments 05/04/2022 3:48 PM 05/08/2022 2:43 PM Care Teams Seat Pack Inspector Relationship Specialty Start Date End Date Richard Rouse MD [facility] [phone] PCP - General 11/24/21
--- OUTSIDE RECORDS SUMMARY | 2025-04-24 12:02 | XMS_ITS | Encounter Summary ---
Author Organization [facility] Address [address] [place] [address] Care Team Providers Care Electrical Logger Name Role Phone Richard Rouse MD Primary Care Provider [phone] Encounter Details Date Type Department Care Team (Late st Contact Info) Description 11/24/2021 Lab Requisition [facility] Care DermPath Lab [address] [place] [id number] Bret Curtis MD [address] [place] [address] Social History Tobacco Use Types Packs/Day Years Used Date Smoking Tobacco: Never Assessed Comments Unknown Sex and Gender Information Value Date Recorded Sex Assigned at Not on file Legal Sex Female 5:42 AM ENGINEERING AND DEVELOPMENT DIRECTOR Gender Identity Not on file Sexual Orientation Not on file documented as of this encounter Plan of Treatment Not on file documented as of this encounter Procedures Procedure Name Priority Date/Time Associated Diagnosis Comments DERMATOPATHOLOGY Routine 11/23/2021 12:0 0 AM CDT documented in this encounter Results * DERMATOPATHOLOGY (11/23/2021 12:00 AM CDT) Case Report Dermatopathology Report Case: [id number] Authorizing Provider: Bret Curtis MD Collected: 11/23/2021 12:00 AM Ordering Location: [facility] DermPath Lab Received: 11/24/2021 01:51 PM Pathologist: Marquita Leal MD Specimens: A) - Skin, left fa B) - Skin, right distal radial fa 2 3:09 PM CDT DERMATOPATHOLOGY LABORATORY Final Diagnosis Specimen A. 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 SKIN, right distal radial fa: ACTINIC KERATOSIS, LICHENOID (L57.0) 2 3:09 PM CDT DERMATOPATHOLOGY LABORATORY at 1509 CDT Clinical History A-B: R/O SCC, BCC, [facility] 2 3:09 PM CDT DERMATOPATHOLOGY LABORATORY Gross Description Specimen A: Received is one formalin filled container labeled with the patient's name and designated left fa. The specimen consists of a shave biopsy measuring 83l2h8qn. Jar 0. Specimen B: Received is one formalin filled container labeled with the patient's name and designated right distal radial fa. The specimen consists of a shave biopsy measuring 1c8u1ct. Jar 0. 2 3:09 PM CDT DERMATOPATHOLOGY LABORATORY Microscopic Description Specimen A. SKIN, left fa: There is a cup-shaped lesion with central hyperkeratosis with elements of parakeratosis. The epithelial cells making up the rose of the cup show abundant eosinophilic cytoplasm. There is immaturity of the keratinocytes in the outermost layers of this epithelium. In the dermis there is marked fibroplasia with a mixed inflammatory infiltrate containing eosinophils. Specimen B. SKIN, right distal radial fa: There is focal parakeratosis. The lower half of the epidermis shows disorderly maturation of keratinocytes with nuclear pleomorphism. The dermis shows a band-like, chronic inflammatory infiltrate with occasional apoptotic keratinocytes and some basal vacuolar alteration. 2 3:09 PM CDT DERMATOPATHOLOGY LABORATORY Disclaimer An external and internal positive and negative controls are appropriate for the histochemical, immunohistochemical and immunofluorescence stain(s) in this case (if any), except where stated explicitly. The performance characteristics of the stain(s) cited in this report were developed and its performance characteristic determined by the Dermatopathology Laboratory at [facility], directed by Dr. Darren Palacio. These tests need not be, and therefore are not, approved by the [place] Food and Drug Administration. The tests are used for clinical purposes. Billing Codes Specimen Charges Stain Charges 64540 17453 1 1 2 3:09 PM CDT DERMATOPATHOLOGY LABORATORY Embedded Images 2 3:09 PM CDT DERMATOPATHOLOGY LABORATORY Pathology/Cytology TISSUE SPECIMEN FROM SKIN / Unknown 11/23/2021 11/24/2021 1:51 PM CDT Miscellaneous samples (specimen) TISSUE SPECIMEN FROM SKIN / Unknown 11/23/2021 11/24/2021 1:51 PM CDT Bret Curtis MD LAB - PATHOLOGY/CYTOLOGY ORD ERABLES Final Result DERMATOPATHOLOGY LABORATORY [facility] - Department of Dermatology [facility] [address] [place] [address], [address] Floor [address] [phone] documented in this encounter Visit Diagnoses Not on filedocumented in this encounter Care Teams Electrical Logger Relationship Specialty Start Date End Date Richard Rouse MD [address] [place] [address] [address] [place] [address] PCP - General 11/24/21 documented as of this encounter
--- OUTSIDE RECORDS SUMMARY | 2025-04-24 12:02 | XMS_ITS | Encounter Summary ---
Author Organization [facility] Address [address] [facility] [place] [address] Care Team Providers Care Excavator Operator Name Role Phone Richard Rouse MD Primary Care Provider [phone] Encounter Details Date Type Department Care Team (Late st Contact Info) Description 11/16/2022 Lab Requisition [facility] - DermPath Lab [address] [facility] [place] [address] Bret Curtis MD [address] [place] [address] Social History Tobacco Use Types Packs/Day Years Used Date Smoking Tobacco: Never Smokeless Tobacco: Never Alcohol Use Standard Drinks/Week Comments Not Currently [...] on file Legal Sex Female 5:42 AM TOP TAPER MACHINE Gender Identity Not on file Sexual Orientation Not on file documented as of this encounter Functional Status * Is person deaf or have serious hearing difficulty? Answer Date of Assessment Author No 05/04/2022 3:00 PM Xenia Blankenship RN * Is person blind or have serious difficulty seeing? Answer Date of Assessment Author No 05/04/2022 3:00 PM Xenia Blankenship RN * Does person have serious difficulty walking/climbing stairs? Answer Date of Assessment Author Yes 05/04/2022 3:00 PM Xenia Blankenship RN * Does person have difficulty dressing/bathing? Answer Date of Assessment Author Yes 05/04/2022 3:00 PM Xenia Blankenship RN * Does person have difficulty doing errands alone? Answer Date of Assessment Author Yes 05/04/2022 3:00 PM Xenia Blankenship RN documented as of this encounter Mental Status * Does person have difficulty concentrating/remembering/making decisions? Answer Entry Date Author No 05/04/2022 3:00 PM Xenia Blankenship RN documented in this encounter Plan of Treatment Not on file documented as of this encounter Procedures Procedure Name Priority Date/Time Associated Diagnosis Comments DERMATOPATHOLOGY Routine 11/15/2022 12:0 0 AM CDT documented in this encounter Results * DERMATOPATHOLOGY (11/15/2022 12:00 AM CDT) Case Report Dermatopathology Report Case: [id number] Authorizing Provider: Bret Curtis MD Collected: 11/15/2022 12:00 AM Ordering Location: [facility] DermPath Lab Received: 11/16/2022 02:07 PM Pathologist: Gay Palacio MD Specimen: Skin, left distal ext forearm 3 1:23 PM CDT DERMATOPATHOLOGY LABORATORY Amended Report Correction to site location from left distal radial ulnar ext forearm to left distal ext forearm 3 1:23 PM CDT DERMATOPATHOLOGY LABORATORY Final Diagnosis Specimen A. SKIN, left distal ext forearm: HYPERPLASTIC (HYPERTROPHIC) ACTINIC KERATOSIS (L57.0) DERMAL FIBROSIS (L90.5) 3 1:23 PM CDT DERMATOPATHOLOGY LABORATORY Amendment electronically signed by Sheridan Huertas on 12/12/2022 at 1322 CDT at 1153 CDT Clinical History R/O SCC 3 1:23 PM CDT DERMATOPATHOLOGY LABORATORY Gross Description Specimen A: Received is one formalin filled container labeled with the patient's name and designated left distal ext forearm. The specimen consists of two shave biopsies measuring 6x8x1 and 8x6x1 mm. Jar 0. 3 1:23 PM CDT DERMATOPATHOLOGY LABORATORY Microscopic Description Specimen A. SKIN, left distal ext forearm: There is hyperkeratosis alternating with parakeratosis. There is epidermal hyperplasia with disorderly maturation of keratinocytes with nuclear pleomorphism confined to the lower half of the epidermis. There is focal dermal fibrosis. 3 1:23 PM CDT DERMATOPATHOLOGY LABORATORY Disclaimer An external and internal positive and negative controls are appropriate for the histochemical, immunohistochemical and immunofluorescence stain(s) in this case (if any), except where stated explicitly. The performance characteristics of the stain(s) cited in this report were developed and its performance characteristic determined by the Dermatopathology Laboratory at [facility], directed by Dr. Darren Palacio. These tests need not be, and therefore are not, approved by the [place] Food and Drug Administration. The tests are used for clinical purposes. Billing Codes Specimen Charges Stain Charges 79460 1 3 1:23 PM CDT DERMATOPATHOLOGY LABORATORY Embedded Images 3 1:23 PM CDT DERMATOPATHOLOGY LABORATORY Pathology/Cytolog y TISSUE SPECIMEN FROM SKIN / Unknown 11/15/2022 11/16/2022 2:07 PM CDT us Bret Curtis MD LAB - PATHOLOGY/CYTOLOGY ORD ERABLES Edited Result - Final DERMATOPATHOLOGY LABORATORY [facility] - Department of Dermatology [address], [address] [phone] documented in this encounter Visit Diagnoses Not on filedocumented in this encounter Care Teams Excavator Operator Relationship Specialty Start Date End Date Richard Rouse MD [address] [place], [place] [address] [id number] PCP - General 11/24/21 documented as of this encounter
--- OUTSIDE RECORDS SUMMARY | 2025-04-24 12:02 | XMS_ITS | Encounter Summary ---
Author Organization [facility] Address [address] [facility] [place] [address] Care Team Providers Care Excel Specialist Name Role Phone Richard Rouse MD Primary Care Provider Encounter Details Date Type Department Care Team (Late st Contact Info) Description 04/23/2024 Lab Requisition [facility] - DermPath Lab [address] [facility] [place] [address] Bret Curtis MD [address] [place] [address] Social History Tobacco Use Types [...] on file Legal Sex Female 5:42 AM SALES FLOOR TEAM LEADER Gender Identity Not on file Sexual Orientation [...] Priority Date/Time Associated Diagnosis Comments DERMATOPATHOLOGY Routine 04/22/2024 3:33 AM SALES FLOOR TEAM LEADER documented in this encounter Results * DERMATOPATHOLOGY (04/22/2024 3:33 AM SALES FLOOR TEAM LEADER) Case Report Dermatopathology Report Case: [id number] Authorizing Provider: Bret Curtis MD Collected: 04/22/2024 03:33 AM Ordering Location: [facility] - Received: 04/23/2024 03:12 PM DermPath Lab Pathologist: Gay Palacio MD Specimen: Skin, left superior pretibia 4 2:59 PM SALES FLOOR TEAM LEADER DERMATOPATHOLOGY LABORATORY Final Diagnosis Specimen A. SKIN, left superior pretibia: HYPERTROPHIC ACTINIC KERATOSIS, LICHENOID (L57.0) NOT PRESENT AT SAMPLED MARGIN 4 2:59 PM SALES FLOOR TEAM LEADER DERMATOPATHOLOGY LABORATORY at 1459 SALES FLOOR TEAM LEADER Clinical History R/O BCC. Check margins 4 2:59 PM SALES FLOOR TEAM LEADER DERMATOPATHOLOGY LABORATORY Gross Description Specimen A: Received is one formalin filled container labeled with the patients name and designated left superior pretibia. The specimen consists of a shave removal measuring 26x75f8 mm. The specimen is serially sectioned and submitted in 1 cassette. Jar 0. 4 2:59 PM [facility] DERMATOPATHOLOGY LABORATORY Microscopic Description Specimen A. SKIN, left superior pretibia: There is focal parakeratosis. The lower half of the epidermis shows disorderly maturation of keratinocytes with nuclear pleomorphism. The dermis shows a band-like, chronic inflammatory infiltrate with occasional apoptotic keratinocytes and some basal vacuolar alteration. This lesion is not present at the sampled margin of the specimen. 4 2:59 PM [facility] DERMATOPATHOLOGY LABORATORY Disclaimer An external and internal positive and negative controls are appropriate for the histochemical, immunohistochemical and immunofluorescence stain(s) in this case (if any), except where stated explicitly. The performance characteristics of the stain(s) cited in this report were developed and its performance characteristic determined by the Dermatopathology Laboratory at [facility], directed by Dr. Darren Palacio. These tests need not be, and therefore are not, approved by the [place] Food and Drug Administration. The tests are used for clinical purposes. Billing Codes Specimen Charges Stain Charges 35449 1 4 2:59 PM [facility] DERMATOPATHOLOGY LABORATORY Embedded Images 4 2:59 PM [facility] DERMATOPATHOLOGY LABORATORY Pathology/Cytolo gy TISSUE SPECIMEN FROM SKIN / Unknown 04/22/2024 3:33 AM SALES FLOOR TEAM LEADER 04/23/2024 3:12 PM SALES FLOOR TEAM LEADER us Bret Curtis MD LAB - PATHOLOGY/CYTOLOGY ORD ERABLES Final Result DERMATOPATHOLOGY LABORATORY [facility] - Department of Dermatology [address], [address] [phone] documented in this encounter Visit Diagnoses Not on filedocumented in this encounter Care Teams Excel Specialist Relationship Specialty Start Date End Date Richard Rouse MD [address] [place] [address] [address] [place] [address] PCP - General 11/24/21 documented as of this encounter
--- OUTSIDE RECORDS SUMMARY | 2025-04-24 12:02 | XMS_ITS | Data Portability ---
Author Organization [facility] [place] Address [address] [place] [address] Care Team Providers Care Chrome Plater Helper Name Role Phone CAM ARCEO Primary Care Provider [phone] Assessment No assessment recorded. Plan of Treatment Reminders Order Date Submit Date Provider Last Modified By Organization Details Last Modified Time Details Appointments None record ed. Lab None record ed. Referral None record ed. Procedures None record ed. Surgeries None record ed. Imaging None record ed. Medication Orders None record ed. Patient TargetsNo targets recorded. Patient InstructionsNo instructions recorded. Reason for Referral None Reported. Procedures Surgical History Date Name Laterality Status Provider Name and Address Organization Details Recorded Time 5 Date of Last Pap Smear completed Yadira Daley [facility] 09/06/2022 15:03:00 Imaging Results None recorded. Procedure Notes None recorded. Medical Equipment None Reported. Allergies Allergen ID Allergen Name Allergen Category Reaction Reaction Severity Criticality Documentation Date Start Date Code Code System Note Provider Name and Address Organization Details Recorded Time acetamino phen / hydrocodo ne medicatio n Not available Not available Not available 09/06/202205179 2 RxNorm Yadira cesar, [facility] 3 15:01:56 Keflex medicatio n Not available Not available Not available 09/06/2022 7 RxNorm Yadira cesar, [facility] 3 15:02:16 Medications Name Sig Start Date Stop Date Status Note LastModified by Organization Details LastModified Time prednisone 5 mg tablet TAKE 1 TABLET BY MOUTH DAILY active Not Available Not Available No t Available amlodipine 2.5 mg tablet TAKE 3 TABLETS BY MOUTH EVERY MORNING active Not Available Not Available No t Available tramadol 50 mg tablet TAKE 1 TABLET BY MOUTH TWICE DAILY active Not Available Not Available No t Available methenamine hippurate 1 gram tablet TAKE 1 TABLET BY MOUTH TWICE DAILY active Not Available Not Available No t Available Ventolin HFA 90 mcg/actuation aerosol inhaler INHALE 2 PUFFS BY MOUTH 6 TIMES A DAY active Not Available Not Available No t Available Vitals Date Recorded Systolic And Diastolic Provider Name and Address Organization Details Last Updated DateTime 09/06/2022 162/100 mm[Hg] TAYLOR Gaffney [address], [place], [address], [facility] 09/06/2022 15:30:04 Date Recorded Body height Systolic And Diastolic Provider Name and Address Organization Details Last Updated DateTime 09/06/2022 162.56 cm 163/101 mm[Hg] Yadira Daley [facility] 09/06/2022 15:01:34 Social History None recorded. Functional Status None recorded. Mental Status None recorded. Family History Nothing Reported. Medical History No medical history recorded. Gynecological History Statement/Question Response STIs/STDs N Age of first menstrual cycle 12 HPV Vaccine N Date of Last Pap Smear 03/27/2015 Sexual Problems? N Sexually Active? N Obstetrics History GPAL:G 2 P 0 0 0 2 Type Value Living 2 Total 2 Past Encounters Encounter ID Performer Location Encounter Start Date Encounter Closed Date Diagnosis/Indication Diagnosis SNOMED-CT Code Diagnosis ICD10 Code Diagnosis IMO Codes Diagnosis Note [id number] GARRET Gaffney [place] [address] [address] 09/06/2022 13:55:30 09/06/2022 17:03:37 Vulval irritation 315369117 N90.89 Speculum exam normal, normal appearing vaginal wall and vaginal cuffNo bleeding noted on examSome irritation noted around urethral openingShe is not experienci ng any vaginal itching, d/c, pain or odorsWe discussed crisco to vulva twice daily. Vulvar care guidelines discussedE ncouraged patient to f/u with her GI provider as the bleeding she experience d could be GI in nature given her hx. Continue to f/u with her urologist as well.ED precaution s discussed Time spent in visit is a total of 20 mins with at least 50% of visit consisting of counseling and review of plan of care. BP elevated. No symptoms. States she was just at her PCP and BP was normal. Advised patient to notify PCP of elevated BP today and f/u with PCP. Check BP at home as well. ED precaution s discussed. Health Concerns Section Related Observation LastModified by Organization Detai ls LastModified Time None Recorded Concern Status LastModified by Organization Details LastModified Time None Recorded Advance Directives Directive None Recorded Payers Insurance Date Sequence Insurance Name Policy Number Policy Gonzalez Covered Member ID Gonzalez Member ID Guarantor Name 09/06/2022 2 [employer] Janice Walker [id number] Janice Walker 09/07/2022 1 [place] Janice Walker [id number] Janice Walker 09/07/2022 [employer] (MEDICARE SUPPLEMENT) Janice Walker [id number] Janice Walker Notes Date Note Type Note Provider Name and Address Organization Details Recorded Time 09/06/2022 text/html 72yoPresents for evaluation of bleedingTAH, BSO - 20+ years ago for fibroids (non-cancerous indications)No hx of abnormal paps prior to hystMedical hx : polymyositis, HTN, GERD, diverticular bleed / GI bleed he lives in an assisted living, has caregivers that help herShe wears depends at night, as she does not have a caregiver at nightNoticed a few drops of blood on her depends about 10 days ago. No bleeding after that.She denies any vaginal itching, d/c, odors, hematuria, or pelvic painShe sees a urologist every 3 months, hx of frequent UTIs - just recently saw themGI bleed 05/09, follows with GI provider, was told she also has hemorrhoids. She has not noticed any blood in her stools or any rectal bleeding since this episode GARRET Gaffney [address], [place], [address], [place] [facility] 09/06/2022 17:23:24 OBGyn Episode Ob Episode Information Episode Created Date Number of Fetuses Patient Bloodtype Patient rh Status Prepregnancy Weight lbs Domestic Partner Domestic Partner Phone Father Name Bottle Tester Status 09/07/19 23 1 CLOSED Fetus Data First Name Last Name Admitted to NICU Weight (g) Sex Living Outcome Pediatric Complications Fetus ID Race Codes Race Delivery Type 3345.24 1 F [id number] Vaginal Delivery Estuardo Calculation Initial Estuardo Date Initial Exam Date Initial Exam Provider Initial Ultrasound Date Last Menstrual Period Date Ultra Sound Weeks Gestation 0 Eighteen To Twenty Week Estuardo Update Ultra Sound Date Fundal Height At Umbil Quickening Date Ultra Sound Latest Weeks Gestation Final Estuardo Confirmed By Final Estuardo Confirmed Date Final Estuardo Date Ultra Sound Latest Days Gestation 0 0 Menstrual History Last Menstrual Date Menses Monthly On Bcp Conception Prior Menses Frequency Hcg Plus Date Menarche Onset Age Delivery Information Delivery Date Delivery Type Labor Anesthesia Weeks Gestation Incision Type Labor Labor Length Hrs Delivered By Post Complications Tubal Sterilization Discharge Date Comments 5 Discharge Information Feeding Method Contraceptive Method Maternal HG B and HCT Levels Ob Episode Information Episode Created Date Number of Fetuses Patient Bloodtype Patient rh Status Prepregnancy Weight lbs Domestic Partner Domestic Partner Phone Father Name Bottle Tester Status 09/07/19 23 1 CLOSED Fetus Data First Name Last Name Admitted to NICU Weight (g) Sex Living Outcome Pediatric Complications Fetus ID Race Codes Race Delivery Type 4252.42 5 M [id number] Vaginal Delivery Estuardo Calculation Initial Estuardo Date Initial Exam Date Initial Exam Provider Initial Ultrasound Date Last Menstrual Period Date Ultra Sound Weeks Gestation 0 Eighteen To Twenty Week Estuardo Update Ultra Sound Date Fundal Height At Umbil Quickening Date Ultra Sound Latest Weeks Gestation Final Estuardo Confirmed By Final Estuardo Confirmed Date Final Estuardo Date Ultra Sound Latest Days Gestation 0 0 Menstrual History Last Menstrual Date Menses Monthly On Bcp Conception Prior Menses Frequency Hcg Plus Date Menarche Onset Age Delivery Information Delivery Date Delivery Type Labor Anesthesia Weeks Gestation Incision Type Labor Labor Length Hrs Delivered By Post Complications Tubal Sterilization Discharge Date Comments 6 Discharge Information Feeding Method Contraceptive Method Maternal HG B and HCT Levels
--- OUTSIDE RECORDS SUMMARY | 2025-04-24 14:44 | XMS_ITS | Encounter Summary ---
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 Darren Palacio. These tests need not be, and therefore are not, approved by the [place] Food and Drug Administration. The tests are used for clinical purposes. Billing Codes Specimen Charges Stain Charges 12297 1 3 1:23 PM CDT DERMATOPATHOLOGY LABORATORY Embedded Images 3 1:23 PM CDT DERMATOPATHOLOGY LABORATORY Pathology/Cytolog y TISSUE SPECIMEN FROM SKIN / Unknown 11/15/2022 11/16/2022 2:07 PM CDT us Bret Curtis MD LAB - PATHOLOGY/CYTOLOGY ORD ERABLES Edited Result - Final DERMATOPATHOLOGY LABORATORY [facility] - Department of Dermatology [address], [address] [phone] documented in this encounter Visit Diagnoses Not on filedocumented in this encounter Care Teams Window Air Conditioner Installer Relationship Specialty Start Date End Date Richard Rouse MD [address] [place], [place] [address] [phone] PCP - General 11/24/21 documented as of this encounter
--- OUTSIDE RECORDS SUMMARY | 2025-04-24 14:44 | XMS_ITS | Encounter Summary ---
Author Organization [facility] Address [address] [place] [address] Care Team Providers Care Specialty Trimmer Name Role Phone Richard Rouse MD Primary Care Provider Encounter Details Date Type Department Care Team (Late st Contact Info) Description 04/23/2024 Lab Requisition [facility] - DermPath Lab [address] [facility] [place] [address] Bret Curtis MD [address] [address] Social History Tobacco Use Types [...] on file Legal Sex Female 5:42 AM CALENDER TENDER Gender Identity Not on file Sexual Orientation [...] Diagnosis Comments DERMATOPATHOLOGY Routine 04/22/2024 3:33 AM CALENDER TENDER documented in this encounter Results * DERMATOPATHOLOGY (04/22/2024 3:33 AM CALENDER TENDER) Case Report Dermatopathology Report Case: [id number] Authorizing Provider: Bret Curtis MD Collected: 04/22/2024 03:33 AM Ordering Location: [facility] - Received: 04/23/2024 03:12 PM DermPath Lab Pathologist: Gay Palacio MD Specimen: Skin, left superior pretibia 4 2:59 PM CALENDER TENDER DERMATOPATHOLOGY LABORATORY Final Diagnosis Specimen A. SKIN, left superior pretibia: HYPERTROPHIC ACTINIC KERATOSIS, LICHENOID (L57.0) NOT PRESENT AT SAMPLED MARGIN 4 2:59 PM CALENDER TENDER DERMATOPATHOLOGY LABORATORY at 1459 CALENDER TENDER Clinical History R/O BCC. Check margins 4 2:59 PM CALENDER TENDER DERMATOPATHOLOGY LABORATORY Gross Description Specimen A: Received is one formalin filled container labeled with the patients name and designated left superior pretibia. The specimen consists of a shave removal measuring 32x18c4 mm. The specimen is serially sectioned and submitted in 1 cassette. Jar 0. 4 2:59 PM [facility] DERMATOPATHOLOGY LABORATORY Microscopic Description Specimen A. SKIN, left superior pretibia: There is focal parakeratosis. The lower half of the epidermis shows disorderly maturation of keratinocytes with nuclear pleomorphism. The dermis shows a band-like, chronic inflammatory infiltrate with occasional apoptotic keratinocytes and some basal vacuolar alteration. This lesion is not present at the sampled margin of the specimen. 4 2:59 PM [facility] DERMATOPATHOLOGY LABORATORY Disclaimer An external and internal positive and negative controls are appropriate for the histochemical, immunohistochemical and immunofluorescence stain(s) in this case (if any), except where stated explicitly. The performance characteristics of the stain(s) cited in this report were developed and its performance characteristic determined by the Dermatopathology Laboratory at [facility], directed by Dr. Darren Palacio. These tests need not be, and therefore are not, approved by the [place] Food and Drug Administration. The tests are used for clinical purposes. Billing Codes Specimen Charges Stain Charges 56238 1 4 2:59 PM [facility] DERMATOPATHOLOGY LABORATORY Embedded Images 4 2:59 PM [facility] DERMATOPATHOLOGY LABORATORY Pathology/Cytolo gy TISSUE SPECIMEN FROM SKIN / Unknown 04/22/2024 3:33 AM CALENDER TENDER 04/23/2024 3:12 PM CALENDER TENDER us Bret Curtis MD LAB - PATHOLOGY/CYTOLOGY ORD ERABLES Final Result DERMATOPATHOLOGY LABORATORY [facility] - Department of Dermatology [address], [address] [phone] documented in this encounter Visit Diagnoses Not on filedocumented in this encounter Care Teams Specialty Trimmer Relationship Specialty Start Date End Date Richard Rouse MD [address] [place] [address] [address] [place] [address] PCP - General 11/24/21 documented as of this encounter
--- OUTSIDE RECORDS SUMMARY | 2025-04-24 14:44 | XMS_ITS | Clinical Summary ---
Author Organization [facility] Address [address] [facility] [place] [address] Care Team Providers Care Auto Parts Clerk Name Role Phone Richard Rouse MD Primary Care Provider [phone] Source Comments [facility] [employer],non-owned Affiliates and Associated Physician Practices is amultiple site organization consisting of ambulatory clinics and hospital sitesin [place], [place], [place] and [place]. This disclosure is being madepursuant to the Care Everywhere program and may not contain all information available regarding this patient. Last updated 18.[facility] [employer] Allergies Active Allergy Reactions Criticality Noted Date [...] LURIA, FLUZONE TRIVALENT; 6MO+) (IIV3) 04/02/2013 Covid Behalf primary monoval ent 12+ yr 0.3mL Purple [...] on file Legal Sex Female 5:42 AM SAND CASTER Gender Identity Not on file Sexual Orientation Not on file Last Filed Vital Signs Vital Sign Reading Time Taken Comments Blood Pressure 139/78 05/08/2022 12:01 PM SAND CASTER Pulse 105 05/08/2022 12:01 PM SAND CASTER Temperature 37.3 C (99.2 F) 05/08/2022 12:01 PM SAND CASTER Respiratory Rate 18 05/08/2022 12:01 PM SAND CASTER Oxygen Saturation 96% 05/08/2022 12:01 PM SAND CASTER Inhaled Oxygen Concentration - - Weight 74.1 kg (163 lb 4.8 oz) 05/04/2022 3:10 P M SAND CASTER Height 154.9 cm (5' 1) 05/04/2022 3:10 PM SAND CASTER Body Mass Index 30.86 05/04/2022 3:10 PM SAND CASTER Plan of Treatment Health Maintenance Due Date [...] 3:48 PM 05/08/2022 2:43 PM Care Teams Auto Parts Clerk Relationship Specialty Start Date End Date Richard Rouse MD [facility] [address] [address] PCP - General 11/24/21
--- OUTSIDE RECORDS SUMMARY | 2025-04-24 14:44 | XMS_ITS | Encounter Summary ---
Author Organization [facility] Address [address] [facility] [place] [address] Care Team Providers Care Tongue And Groove Machine Feeder Name Role Phone Richard Rouse MD Primary Care Provider Encounter Details Date Type Department Care Team (Late st Contact Info) Description 11/24/[address] [facility] Derm[facility] Lab [address] [place] [phone] Bret Curtis MD [address] [place] [address] Social History Tobacco Use Types Packs/Day Years Used Date Smoking Tobacco: Never Assessed Comments Unknown Sex and Gender Information Value Date Recorded Sex Assigned at Not on file Legal Sex Female 5:42 AM RN MDS Gender Identity Not on file Sexual Orientation Not on file documented as of this encounter Plan of Treatment Not on file documented as of this encounter Procedures Procedure Name Priority Date/Time Associated Diagnosis Comments DERMATOPATHOLOGY Routine 11/23/2021 12:0 0 AM CDT documented in this encounter Results * DERMATOPATHOLOGY (11/23/2021 12:00 AM CDT) Case Report Dermatopathology Report Case: [id number] Authorizing Provider: Bret Curtis MD Collected: 11/23/2021 12:00 AM Ordering Location: [facility] DermPath Lab Received: 11/24/2021 01:51 PM Pathologist: [...] specimen consists of a shave biopsy measuring [id number]. Jar 0. Specimen B: Received is one formalin filled container labeled with the patient's name and designated right distal radial fa. The specimen consists of a shave biopsy measuring [id number]. Jar 0. 2 3:09 PM CDT DERMATOPATHOLOGY [...] characteristic determined by the Dermatopathology Laboratory at [facility], directed by Dr. Darren Palacio. These tests need not be, and therefore are not, approved by the [place] Food and Drug Administration. The tests are used for clinical purposes. Billing Codes Specimen Charges Stain Charges 36375 48452 1 1 2 3:09 PM CDT DERMATOPATHOLOGY LABORATORY Embedded Images 2 3:09 PM CDT DERMATOPATHOLOGY LABORATORY Pathology/Cytology TISSUE SPECIMEN FROM SKIN / Unknown 11/23/2021 11/24/2021 1:51 PM CDT Miscellaneous samples (specimen) TISSUE SPECIMEN FROM SKIN / Unknown 11/23/2021 11/24/2021 1:51 PM CDT Bret Curtis MD LAB - PATHOLOGY/CYTOLOGY ORD ERABLES Final Result DERMATOPATHOLOGY LABORATORY [facility] - Department of Dermatology [facility] [address] [place] [address], [address] [phone] documented in this encounter Visit Diagnoses Not on filedocumented in this encounter Care Teams Tongue And Groove Machine Feeder Relationship Specialty Start Date End Date Richard Rouse MD [address] [place] [address] [address] [place] [address] PCP - General 11/24/21 documented as of this encounter
[2025-04-24 15:57] LABS: Add Urine Microscopic? YES; Appearance Urine Clear (Clear); Glucose Urine UA Negative (Negative); Leukocyte Esterase Ur 1+ LEU/UL (Negative); Need Manual Microscopic Reviewed; Nitrate Urine Positive (Negative); Non Pathogenic Casts 0-2; Specific Grav Ur 1.010 (1.001-1.035)
[2025-04-24 16:12] LABS: Hematocrit 41.2 % (37.0-47.0); Hemoglobin 13.3 g/dL (12.0-15.0); Immature Granulocyte Percent A 0.4 % (0-0.5); Lymphocytes Absolute Auto 2.74 K/mm3 (0.9-3.2); Mean Corpuscular HGB Conc 32.3 g/dl (32-36); Mean Corpuscular Hemoglobin 30.6 pg (26-34); Mean Corpuscular Volume 94.9 fl (80-100); Nucleated Red Blood Cells Absolute Auto 0.000 K/mm3 (0.0-0.012); Nucleated Red Blood Cells Perc 0.0 % (0.0-0.2); Platelet Count Result 314 k/mm3 (150-375); Red Blood Count 4.34 M/mm3 (4.2-5.4); White Blood Count 9.3 K/mm3 (4.5-10.0)
--- NOTE | 2025-04-24 16:16 | ED.FEMALEGU ---
HPI - Female Genitourinary General Chief complaint: Urogenital-Female Stated complaint: uti Time Seen by Provider: 04/24/25 14:37 Source: patient and family (daughter) Limitations: physical limitation (bed/wheelchair bound) History of Present Illness HPI Narrative: Patient presents with concern for a urinary tract infection as well as constipation. She notes that she has been dealing with these issues for approximately 1 month. She has a history of urinary tract infections. She also has a history of a GI bleed 3 years ago for which she underwent colonoscopy with Dr. Antione Dao. 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 Not anticoagulation. She has not been experiencing abdominal pain other than occasionally experiences some right lower quadrant pain. She reports that her last bowel movement was 1 month ago. She is wheelchair/bed-bound due to her disease. She is experiencing dysuria and has been leaking stool around what feels like other stool in her rectum. History hysterctomy and cholecystectomy. Has been using a combination of bowel regimen medications including Miralax, Sennocot, Ducolax, etc. Sees urologist. She reports bloody stool noted x1 last night when wiped. Related Data Home Medications ?Medication ?Instructions ?Recorded ?Confirmed ?Last Taken ?Type alprazolam 0.25 mg tablet 0.25 mg PO TID PRN Anxiety 12/25/19 12/24/23 Unknown History baclofen 10 mg tablet 10 mg PO BID 12/25/19 12/24/23 Unknown History pantoprazole 40 mg tablet,delayed 40 mg PO DAILY 12/25/19 12/24/23 Unknown History release tramadol 50 mg tablet 50 mg PO BID PRN Pain 12/25/19 12/24/23 Unknown History methenamine hippurate 1 gram tablet 1 g PO BID 05/02/22 12/24/23 Unknown History clindamycin HCl 300 mg capsule 300 mg PO Q6H 12/24/23 12/24/23 Unknown History cyclobenzaprine 10 mg tablet 10 mg PO TID 12/24/23 12/24/23 Unknown History irbesartan 300 mg tablet 300 mg PO DAILY 12/24/23 12/24/23 Unknown History meclizine 12.5 mg tablet 12.5 mg PO TID PRN Vertigo 12/24/23 12/24/23 Unknown History prednisone 2 mg tablet,delayed 2 mg PO DAILY 12/24/23 12/24/23 Unknown History release prednisone 5 mg tablet 5 mg PO DAILY 12/24/23 12/24/23 Unknown History spironolactone 25 1 tablet PO DAILY 12/24/23 12/24/23 Unknown History mg-hydrochlorothiazide 25 mg tablet trospium 20 mg tablet 20 mg PO DAILY 12/24/23 12/24/23 Unknown History Allergies Allergy/AdvReac Type Severity Reaction Status Date / Time hydrocodone Allergy Unknown Hives Verified 12/24/23 09:55 cephalexin (From Keflex) Allergy Hives Verified 12/24/23 09:55 VICODIN Allergy Unknown Hives Uncoded 05/02/22 10:12 [facility] Past Medical History Medical History Bedbound History of GI bleed History of UTI Inclusion body myositis Acute blood loss anemia Diet-controlled type 2 diabetes mellitus Essential hypertension GERD (gastroesophageal reflux disease) Headache Sleep apnea Resolved after uvulopalatoplasty/tonsillectomy, septoplasty Polymyositis Surgical History Surgical History History of cholecystectomy History of nasal septoplasty (2000) With turbinate reduction History of tonsillectomy (2000) Status post uvulopalatopharyngoplasty (2000) History of laparoscopic cholecystectomy History of bilateral carpal tunnel release (~1999) Family History Family History Father Congestive heart failure Heart disease, Onset Age: 65 Dementia Mother Diabetes mellitus Her mother still alive at age 94. Social History Social History (Updated 04/24/25 @ 21:02 by Kelle Dawn MD) Social History: Patient ; of 50 years. They have 2 children and 7 grandchildren. 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 Code status: Full code Emergency contact: Esther Salter (daughter) Alcohol intake: former Drinks per week: 1 Substance use: never Lack of Transportation: No Lack of Food: Never True Current Housing: I Have Housing Concerned About Future Housing: No Difficulty Paying Gas/Electric Bills: No Difficulty Paying for Meds: No Currently Unemployed: No Education: Master's Degree or Higher Difficulty w/ Childcare or Family Care: No Living arrangements: assisted living Additional living arrangements comments: [facility] Gender identity (if verbalized by the patient): Female Spiritual care concerns: No Exam Narrative: GENERAL: Well-nourished, and in no acute distress. HEAD: Normocephalic, atraumatic. EYES: Non injected, non icteric ENT: Nares clear, no rhinorrhea or epistaxis. Gross auditory acuity intact. NECK: Supple. No meningismus. CHEST: Speaking in full sentences. No respiratory distress. HEART: Tachycardic rate and rhythm. . ABDOMEN: Soft, nondistended. No rigidity or guarding. Not peritoneal. No TTP throughout. LULÚ: Performed with DANYELL Mooney and renato Villanueva present as supervisor insecticide, assisting. Extenral nonthrombosed hemorrhoids. Normal rectal tone. FOBT/guiaic negative. No large firm stool ball or palpable masses although there is stool burden, soft in rectal vault. Soft brown stool on gloved finger. SKIN: Warm, dry. Scattered bruising, particularly on lower extremities. Thin skin throughout. : NOrmal female genitalia. NEURO: Alert and oriented. Answering questions. Following commands. Normal speech without aphasia or dysarthria. PSYCH: Normal mood and affect. Course Vital Signs Vital signs: Vital Signs Temperature 97.3 F L 04/24/25 11:24 Pulse Rate 107 H 04/24/25 11:24 Respiratory Rate 16 04/24/25 11:24 Blood Pressure 157/90 H 04/24/25 11:24 Pulse Oximetry 98 04/24/25 11:24 Temperature 98.1 F 04/24/25 13:13 Pulse Rate 97 04/24/25 19:38 Respiratory Rate 18 04/24/25 19:38 Blood Pressure 143/82 H 04/24/25 18:46 Pulse Oximetry 99 04/24/25 19:38 Oxygen Delivery Room Air 04/24/25 13:13 MDM - Female Genitourinary MDM Narrative Medical decision making narrative: Exceedingly pleasant 74-year-old female with past medical history inclusion body myositis who has chronically been on high-dose prednisone for years presents with concern for a urinary tract infection and constipation. She reports her last bowel movement was approximately 1 month ago although she has been leaking some stool around what she feels like is stool within her rectum. History of GI bleed with last colonoscopy performed 3 years ago. Having dysuria; hx of UTIs. In the emergency department she is afebrile with vital signs notable for mild tachycardia as well as hypertension. Tachycardia resolved on repeat assessment. Urinalysis with 4+ bacteriuria (and no squamous cells) as well as nitrate and leukocyte esterase positive ; unusual that she does not have significant WBC or RBC but still reasonable to treat given her symptoms. Urine culture in process. No previous culture to guide therapy. Lists an allergy to cephalexin. Will give Macrobid. FIrst dose in the ED rest of course prescribed. CBC without leukocytosis (unusual given on chronic steroids), anemia or thrombocytopenia, only mild abnormalities on the differential. Pyridium ordered for dysuria. Informed of side effects. CT as below. No firm stool in regards to the impaction. We discussed the frequent concomitant conditions of constipation and urinary tract infection and she and her daughter verified understanding. Patient has already been trialing a bowel regimen. She is offered bowel regimen as well as enema to be performed at home but she and her daughter would prefer that an enema would be performed while in the emergency department to try to help get the stool that is in her rectal vault loose and clear so she can have symptom relief especially given her bed-bound status. I did advise that she follow-up with gastroenterology given that a standard recommendation for a bowel regimen to include stool softener and laxatives may benefit from the expertise of their service given her unique comorbid conditions. She verifies understanding and is in agreement. Has previously seen Dr Talbot and he is mental retardation aide today; contact information provided again. She is told about her incidental findings on CT scan. She confirms that she has primary care physician Dr. Marcelo. Can follow up with them regarding this. She also follows with a matzo forming machine operator and urology through [facility]. Enema performed with success. Stable for DC back to [place]; will require ambulance due to bedbound status. Differential Diagnosis Differential diagnosis: Likely urinary tract infection and other (constipation; bowel obstruction; diverticulitis; colovesicular fistula) Lab Data Attestation: I reviewed the patient's lab results. 04/24/25 16:06 04/24/25 16:06 Labs: Lab Results 04/24/25 04/24/25 Range/Units 15:27 16:06 WBC 9.3 (4.5-10.0) K/mm3 RBC 4.34 (4.2-5.4) M/mm3 Hgb 13.3 D (12.0-15.0) g/dL Hct 41.2 (37.0-47.0) % MCV 94.9 (80-100) fl MCH 30.6 (26-34) pg MCHC 32.3 (32-36) g/dl RDW 12.6 (11.5-14.5) % Plt Count 314 (150-375) k/mm3 MPV 9.1 (7.4-10.4) fl Immature Gran % (Auto) 0.4 (0-0.5) % Neut % (Auto) 59.2 (45.5-73.1) % Lymph % (Auto) 29.6 (18.3-44.2) % [place] % (Auto) 9.7 H (2.6-8.5) % Eos % (Auto) 0.5 (0-4.4) % Baso % (Auto) 0.6 (0.2-1.2) % Lymph # (Auto) 2.74 (0.9-3.2) K/mm3 [place] # (Auto) 0.9 H (0.1-0.6) K/mm3 Eos # (Auto) 0.1 (0-0.3) K/mm3 Baso # (Auto) 0.1 (0.0-0.1) K/mm3 Abs Immat Gran (auto) 0.04 H (0.00-0.031) K/mm3 Absolute Neuts (auto) 5.5 (1.3-6.7) K/mm3 Absolute Nucleated RBC 0.000 (0.0-0.012) K/mm3 Nucleated RBC % 0.0 (0.0-0.2) % Sodium 133 L (137-145) mmol/L Potassium 4.0 (3.4-5.0) mmol/L Chloride 96 L (98-107) mmol/L Carbon Dioxide 32 H (22-30) mmol/L Anion Gap 5 (4-12) mmol/L BUN 19 H D (7-17) mg/dL Creatinine 0.51 L (0.7-1.0) mg/dL Estim Creat Clear Calc 74 ml/min Estimated GFR > 60 (59 - ) Glucose 131 H (65-110) mg/dL Calcium 9.9 (8.4-10.2) mg/dL Total Bilirubin 0.5 (0.2-1.3) mg/dL AST 30 (14-36) U/L ALT 22 (6-35) U/L Alkaline Phosphatase 69 (38-126) U/L Total Protein 7.6 (6.3-8.2) g/dL Albumin 4.3 (3.5-5.1) g/dL Lipase 51 (23-300) U/L Urine Color Yellow (Yellow) Urine Appearance Clear (Clear) Urine pH 8.5 (5.0-9.0) Ur Specific [place] 1.010 (1.001-1.035) Urine Protein Negative (Negative) mg/dL Urine Glucose (UA) Negative (Negative) mg/dL Urine Ketones Negative (Negative) mg/dL Ur Blood (Man) Negative (Negative) Urine Nitrate Positive H (Negative) Urine Bilirubin Negative (Negative) Urine Urobilinogen 0.2 (<2.0) mg/dL Add Ur Microanalysis Reviewed Leukocyte Esterase Rfl 1+ H (Negative) [place]/UL Urine RBC 0-2 (0-2) /hpf Urine WBC 0-5 (0-3) /hpf Ur Squamous Epith Cells None seen (Few) /hpf Urine Bacteria 4+ H /hpf Urine Casts 0-2 Imaging Data Radiologist's impression: Impressions Abdomen/Pelvis CT 04/24/25 17:41 IMPRESSION: 1. Fecal impaction of the colon with pelvic relaxation. 2: Multiple pancreatic cysts with enlargement of the dominant cyst in the pancreatic tail measuring 1.4 cm. The differential diagnosis includes pseudocyst, or less likely considerations include intraductal papillary mucinous neoplasm (IPMN), mucinous cystic neoplasm (MCN), and the less common serous cystadenoma and neuroendocrine tumor. 3: Enhancing vascular structure measuring 2 cm in the dome of the liver, new compared with prior study. There are associated feeding vessels. Differential diagnosis includes arterial portal shunt, arteriovenous malformation/shunt, and less likely etiologies such as hepatic adenoma and malignant hypervascular lesions. Discharge Plan Discharge Clinical Impression: Dysuria, UTI (urinary tract infection), Fecal impaction, Pancreas cyst, Lesion of liver, Constipation Patient Disposition: NH Jail/Asst Living Condition: Stable Instructions: Antibiotic Form, Constipation (DC), High Fiber Diet (ED), Dysuria (ED), Fecal Impaction (ED), Urinary Tract Infection in Older Adults (ED) Additional Instructions: Multiple pancreatic cysts with enlargement of the dominant cyst in the pancreatic tail measuring 1.4 cm. Enhancing vascular structure measuring 2 cm in the dome of the liver, new compared with prior study. There are associated feeding vessels. Your PCP can help arrange the necessary follow up for these incidental findings. Continue taking your medications as prescribed. You received your 1st dose of antibiotic for the presumed urinary tract infection. Urine culture is in process. Rest of course has been prescribed. Pyridium/phenazopyridine can help with the pain/burning you are experiencing from a urinary tract infection. It can discolor your urine and tears (turn them orange). Do not wear contact lenses while taking this medication. Can follow up with your urologist through [facility] ([place]) I do highly recommend that you follow-up gastroenterology given your history. In the meantime, maintain hydration and make sure incorporating fiber in your diet. Bowel regimen can also include fiber/psyllium/Metamucil, supplement this with MiraLax, and if needed a laxative such as magnesium citrate can be used. Return to the emergency department any new or worsening symptoms. . Patient Language: Ukrainian Prescriptions: New nitrofurantoin monohyd/m-cryst [Macrobid] 100 mg capsule 100 mg PO Q12H 3 Days Qty: 6 0RF Rx Instructions: must administer with a meal/food phenazopyridine [Pyridium] 100 mg tablet 100 mg PO TID PRN (Reason: pain) Qty: 5 0RF Rx Instructions: received first dose in ED psyllium husk [Metamucil] 0.4 gram capsule 0.4 g PO DAILY Qty: 30 0RF magnesium citrate Solution 150 ml PO DAILY PRN (Reason: constipation) Qty: 296 0RF polyethylene glycol 3350 [Miralax] 17 gram/dose powder 17 g PO DAILY Qty: 119 0RF No Action tramadol 50 mg tablet 50 mg PO BID PRN (Reason: Pain) alprazolam 0.25 mg tablet 0.25 mg PO TID PRN (Reason: Anxiety) baclofen 10 mg tablet 10 mg PO BID pantoprazole 40 mg tablet,delayed release (DR/EC) 40 mg PO DAILY methenamine hippurate 1 gram tablet 1 g PO BID cyclobenzaprine 10 mg Tablet 10 mg PO TID clindamycin HCl 300 mg Capsule 300 mg PO Q6H Rx Instructions: medication will stop on 12/26/23 spironolacton-hydrochlorothiaz 25-25 mg Tablet 1 tablet PO DAILY prednisone 5 mg Tablet 5 mg PO DAILY Rx Instructions: with a 2MG tablet to equal 7MG DAILY meclizine 12.5 mg Tablet 12.5 mg PO TID PRN (Reason: Vertigo) irbesartan 300 mg Tablet 300 mg PO DAILY trospium 20 mg Tablet 20 mg PO DAILY Rx Instructions: administer on an empty stomach prednisone 2 mg Tablet,Delayed Release (Dr/Ec) 2 mg PO DAILY Rx Instructions: with a 5MG tablet to equal 7 MG daily Follow-up/Referrals: Rouse,Richard Orozco MD [Primary Care Provider] Allen Humphrey MD [Physician, Gastroenterology] Stand Alone Forms: [facility] Discharge Time of Disposition: 19:59
[2025-04-24 16:25] LABS: Alanine Aminotransferase 22 U/L (6-35); Albumin Level 4.3 g/dL (3.5-5.1); Alkaline Phosphatase 69 U/L (38-126); Anion Gap 5 mmol/L (4-12); Aspartate Amino Transferase 30 U/L (14-36); Bilirubin,Total 0.5 mg/dL (0.2-1.3); Blood Urea Nitrogen 19 mg/dL (7-17); Calcium 9.9 mg/dL (8.4-10.2); Carbon Dioxide 32 mmol/L (22-30); Chloride 96 mmol/L (98-107); Estimated CRCL calculation 74 ml/min; Estimated Glomerular Filt Rate > 60; Glucose 131 mg/dL (65-110); Lipase 51 U/L (23-300); Potassium 4.0 mmol/L (3.4-5.0); Sodium 133 mmol/L (137-145); Total Protein 7.6 g/dL (6.3-8.2)
[2025-04-24] MEDS: PHENAZOPYRIDINE HCL 100 MG TABLET PO (16:42)
--- NOTE | 2025-04-24 19:17 | PC.NURSE ---
Report received from DANYELL Mooney. Assumed care of patient at this time.
[2025-04-24] MEDS: NITROFURANTOIN MONOHYD MACROCR 100 MG CAP PO (20:16)
--- NOTE | 2025-04-24 21:13 | PC.NURSE ---
Patient had large BM on bedpan.
== END 2025-04-24 21:16 ==
PROVIDERS: Emergency Provider Student in an Organized Health Care Education/Training Program; PCP Internal Medicine
DX: N39.0 Urinary tract infection, site not specified (principal); K56.41 Fecal impaction; K76.9 Liver disease, unspecified; K86.2 Cyst of pancreas; G72.41 Inclusion body myositis [IBM]; I10 Essential (primary) hypertension; E11.9 Type 2 diabetes mellitus without complications; K21.9 Gastro-esophageal reflux disease without esophagitis; Z90.710 Acquired absence of both cervix and uterus; Z90.49 Acquired absence of other specified parts of digestive tract; Z79.52 Long term (current) use of systemic steroids; Z79.899 Other long term (current) drug therapy
CPT/HCPCS: 36415; 74177; 80053; 81001; 83690; 85025; 87077; 87086; 87186; 99284; A9270; Q9967